=== PATIENT | female | born 1950 | race Caucasian/White ===

== ENCOUNTER → 2016-11-30 | Outpatient (CLI) | payer BC, MEDICARE ==
--- NOTE | 2016-11-30 14:50 | XR ---
EXAMINATION TYPE: XR chest 2V DATE OF EXAM: 11/30/2016 2:31 PM COMPARISON: 10/16/2015 HISTORY: Follow-up breast cancer FINDINGS: The lungs are clear and there is no pneumothorax, pleural effusion, or focal pneumonia. Mediport catheter noted with biapical pleural-based thickening greater on the right. Underlying COPD noted. No overt failure. Degenerative change of the spine. IMPRESSION: 1. No acute process.
== END | disposition home or self-care (01) ==
LOC: RADXRMAIN 14:16
PROVIDERS: ATTEND Internal Medicine Medical Oncology
DX: Z08 Encounter for follow-up examination after completed treatment for malignant neoplasm (principal); Z85.3 Personal history of malignant neoplasm of breast
CPT/HCPCS: 71020

== ENCOUNTER → 2017-05-25 | Outpatient (CLI) | payer MEDICARE ==
[2017-05-25 08:19] LABS: Basophils # (A) 0.1 k/uL (0-0.2); Basophils % (A) 1 %; CH 30.3; CHCM 33.1; Eosinophils # (A) 0.1 k/uL (0-0.7); Eosinophils % (A) 2 %; HCT 43.1 % (34.0-46.0); HDW 2.17; HGB 13.9 gm/dL (11.4-16.0); Luc # (Auto) 0.13; Luc % (Auto) 2; Lymphocytes # (A) 1.5 k/uL (1.0-4.8); Lymphocytes % (A) 26 %; MCH 29.7 pg (25.0-35.0); MCHC 32.3 g/dL (31.0-37.0); MCV 92.1 fL (80.0-100.0); Mean Platelet Volume 7.5; Monocytes # (A) 0.5 k/uL (0-1.0); Monocytes % (A) 8 %; Neutrophils # (A) 3.6 k/uL (1.3-7.7); Neutrophils % (A) 60 %; RBC 4.68 m/uL (3.80-5.40); WBC 5.9 k/uL (3.8-10.6); WBC (Perox) 5.33
[2017-05-25 08:20] LABS: ALT 39 U/L (9-52); AST 32 U/L (14-36); Anion Gap 8 mmol/L; Blood Urea Nitrogen 10 mg/dL (7-17); Calcium 9.6 mg/dL (8.4-10.2); Carbon Dioxide 30 mmol/L (22-30); Chloride 99 mmol/L (98-107); Cholesterol 185 mg/dL (<200); Glucose 93 mg/dL (74-99); HDL Cholesterol 79 mg/dL (40-60); Non-African American GFR(MDRD) >60 (>60 ml/min/1.73 sqM); Potassium 4.3 mmol/L (3.5-5.1); Sodium 137 mmol/L (137-145); Triglycerides 53 mg/dL (<150)
[2017-05-25 08:59] LABS: Hepatitis C Virus IgG Ab Negative (Negative); Hepatitis C Virus IgG Index 0.01
== END | disposition home or self-care (01) ==
LOC: LABWHC1 07:16
PROVIDERS: ATTEND Internal Medicine
DX: E78.5 Hyperlipidemia, unspecified (principal); M81.0 Age-related osteoporosis without current pathological fracture; E55.9 Vitamin D deficiency, unspecified; Z13.0 Encounter for screening for diseases of the blood and blood-forming organs and certain disorders involving the immune mechanism; Z13.228 Encounter for screening for other metabolic disorders; Z13.9 Encounter for screening, unspecified
CPT/HCPCS: 36415; 80048; 80061; 82306; 84450; 84460; 85025; 86803

== ENCOUNTER → 2017-09-21 | Outpatient (CLI) | payer MEDICARE ==
--- NOTE | 2017-09-21 15:11 | US ---
EXAMINATION TYPE: US kidneys/renal and bladder DATE OF EXAM: 09/21/2017 COMPARISON: US, CT CLINICAL HISTORY: D30.02 BENIGN BLAISE L KIDNEY. Patient stated has had left renal mass biopsied; normal renal function tests per patient EXAM MEASUREMENTS: Right Kidney: 10.9 x 5.9 x 4.8 cm Left Kidney: 10.2 x 5.4 x 6.4 cm Post Void Residual Volume: 3.1 mL Right Kidney: No hydronephrosis or masses seen Left Kidney: lower pole mass still imaged and size = 4.5 x 3.4 x 3.5cm with peripheral vascularity do cumented in mass. Bladder: wnl Bilateral Jets seen: Yes Normal Post Void Residual: Yes IMPRESSION: Stable solid mass lower pole left kidney.
== END | disposition home or self-care (01) ==
LOC: RADUSWWP 13:07
PROVIDERS: ATTEND Urology
DX: D30.02 Benign neoplasm of left kidney (principal)
CPT/HCPCS: 76770

== ENCOUNTER → 2018-01-07 | Outpatient (CLI) | payer MEDICARE ==
[2018-01-07 09:11] LABS: Cholesterol 178 mg/dL (<200); HDL Cholesterol 75 mg/dL (40-60); LDL Cholesterol,Calculated 91 mg/dL (0-99); Triglycerides 58 mg/dL (<150)
== END | disposition home or self-care (01) ==
LOC: LABWHC1 08:20
PROVIDERS: ATTEND Internal Medicine
DX: E78.5 Hyperlipidemia, unspecified (principal)
CPT/HCPCS: 36415; 80061

== ENCOUNTER → 2018-04-26 | Outpatient (CLI) | payer MEDICARE ==
--- NOTE | 2018-04-26 18:37 | US ---
EXAM MEASUREMENTS: Right Kidney: 10.3 x 3.6 x 5.2cm Left Kidney: 11.7 x 5.3 x 4.4cm PATIENT HISTORY: History of angiomyolipoma PRIOR EXAM: on PACS TECH IMPRESSIONS: 1. Right Kidney: no evidence of hydronephrosis or mass 2. Left Kidney: complex solid area lower pole = 5.7 x 4.2 x 4.2cm as seen on prior exam 3. Bladder: appears wnl Bilateral Jets seen: no NURSING SURGICAL SERVICES DIRECTOR: Normal Values: Renal Length = 9 - 12cm Bladder Wall: < 0.3cm IMPRESSION: Solid exophytic mass at the lower pole of the left kidney is unchanged in size allowing for measureme nt error compared to previous exam of 04/12/2016. This is consistent with benign angiomyolipoma. No evidence of renal obstruction.
== END | disposition home or self-care (01) ==
LOC: RADUSWWP 16:20
PROVIDERS: ATTEND Urology
DX: N28.89 Other specified disorders of kidney and ureter (principal); D30.02 Benign neoplasm of left kidney
CPT/HCPCS: 76770

== ENCOUNTER → 2018-05-25 | Outpatient (CLI) | payer MEDICARE ==
--- NOTE | 2018-05-25 12:01 | XR ---
EXAMINATION TYPE: XR chest 2V DATE OF EXAM: 05/25/2018 COMPARISON: 11/30/2016 TECHNIQUE: PA and lateral views submitted. HISTORY: Follow-up breast cancer FINDINGS: The lungs are clear and there is no pneumothorax, pleural effusion, or focal pneumonia. Hyperinflat ion suggests COPD. Biapical pleural thickening. Vague nodularity overlying the right midlung could be related to nipple shadow. Hypertrophic and degenerative change of the spine. IMPRESSION: 1. No acute process. Correlate for COPD. Vague nodularity right midlung may be related to nipple shad ow. Follow-up chest x-ray with nipple markers could be obtained.
== END | disposition home or self-care (01) ==
LOC: RADXRMAIN 10:39
PROVIDERS: ATTEND Internal Medicine Medical Oncology
DX: R91.8 Other nonspecific abnormal finding of lung field (principal); Z85.3 Personal history of malignant neoplasm of breast
CPT/HCPCS: 71046

== ENCOUNTER → 2018-06-09 | Outpatient (CLI) | payer MEDICARE ==
[2018-06-09 15:42] LABS: Blood Urea Nitrogen 13 mg/dL (7-17)
--- NOTE | 2018-06-09 21:57 | CT ---
EXAMINATION TYPE: CT chest w con DATE OF EXAM: 06/09/2018 COMPARISON: Prior CT chest abdomen and pelvis October 16, 2015. Prior chest x-ray May 25, 2018. HISTORY: Abnormal CXR at [facility]. History of breast cancer. CT DLP: 378 mGycm. Automated Exposure Control for Dose Reduction was Utilized. TECHNIQUE: CT scan of the thorax is performed following with IV Contrast, patient injected with 100 mL of Isovue 300. FINDINGS: LUNGS: There is background moderate biapical pleural/parenchymal scarring redemonstrated. Correlating with recent x-ray there is a new 6 x 4 mm nodule with irregular margins in the right lower lung late ral aspect axial image 43. There is medial left basilar linear atelectasis and/or scarring. No pleura l effusion or pneumothorax is present bilaterally. No additional nodules or masses are present. MEDIASTINUM: There are no greater than 1 cm hilar or mediastinal lymph nodes. No cardiomegaly or pe ricardial effusion is seen. There are prominent right and left pulmonary arteries likely reflective of underlying pulmonary hypertension. OTHER: Bilateral breasts are surgically absent. There is slight S-shaped scoliosis most prominent narinder r the thoracolumbar junction. There is moderate multilevel spurring in the thoracolumbar spine. IMPRESSION: There is confirmation of 6 x 4 mm nodule right mid to lower lung new from 2015 CT.
== END | disposition home or self-care (01) ==
LOC: RADCTMAIN 15:06
PROVIDERS: ATTEND Internal Medicine Medical Oncology
DX: C50.411 Malignant neoplasm of upper-outer quadrant of right female breast (principal); R91.1 Solitary pulmonary nodule; Z51.11 Encounter for antineoplastic chemotherapy
CPT/HCPCS: 82565; 84520; 71260; 36415; Q9967

== ENCOUNTER → 2018-06-25 | Outpatient (CLI) | payer MEDICARE ==
--- NOTE | 2018-06-27 21:55 | PE ---
EXAMINATION TYPE: PET CT fusion skull to thigh DATE OF EXAM: 06/25/2018 CLINICAL HISTORY: 67-year-old female restaging right breast cancer diagnosed in 2014. Status post tamia ateral mastectomies in 2014 and chemotherapy completed in 2016. New right lung solitary pulmonary nod ule. TECHNIQUE: Following the intravenous administration of 12.3 mCi of F-18 FDG, whole body images are performed from the skull base to the midthigh. Images are reviewed on the computer in the coronal, a xial, and sagittal planes. Reconstructed rotating images are created on independent workstation and reviewed on the computer. A localization and attenuation correction CT is performed in conjunction with the PET scan. Glucose level: 80 mg/dL Injection site: Left antecubital fossa. CTDI: 2.62 mGy DLP: 232.81 mGy-cm COMPARISON: CT chest 06/09/[address] abdomen 08/04/2016.. FINDINGS: PET: Symmetrical lingual tonsillar uptake likely physiologic. Otherwise, physiologic FDG uptake within the neck. 5 mm right lower lobe pulmonary nodule near the midlung level axial image 114 is too small for adequa te PET characterization. Physiologic FDG uptake within the chest. Average liver SUV 2.2. Solid mass redemonstrated in the lower pole left kidney measuring 4.3 cm, stable from 08/04/2016. The re is associated mild, borderline moderate uptake, max SUV 3.0. Tiny hyperdense cortical lesion measuring 5 mm lateral lower pole right kidney likely a small hemorrh agic cyst and shows no FDG uptake. Otherwise, physiologic FDG uptake within the abdomen and pelvis. ATTENUATION CORRECTION CT: Visualized paranasal sinuses and mastoid air cells are clear. No cervical lymphadenopathy. Bilateral mastectomies. Heart normal size without pericardial effusion. Aorta normal caliber with con ventional arch vessel branching anatomy. No thoracic lymphadenopathy by CT size criteria. Biapical pl eural parenchymal scarring and mild diffuse bronchial wall thickening No dilated small bowel, free fluid, or free air. Moderate stool burden. Paucity of intra-abdominal fa t and lack of IV contrast limits assessment of the abdomen and pelvis. Pelvic exam further limited due to extensive artifacts from the patient's hip replacements. Bones: Bilateral hip replacements. Degenerative changes lower lumbar spine. No osseous destructive pr ocess. Cervical spondylosis. Diffuse osteopenia. IMPRESSION: 1. Status post bilateral mastectomies. 2. The 5 mm right mid lung pulmonary nodule is too small for adequate PET characterization. 3-6 month follow-up CT recommended to reassess and exclude early metastatic disease. 3. Mild, borderline moderate uptake within the solid 4.3 cm left lower pole renal mass. This is stabl e dating back to at least 08/04/2016. 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 Annual surveillance can be performed.
== END | disposition home or self-care (01) ==
LOC: RADPETMAIN 09:51
PROVIDERS: ATTEND Internal Medicine Medical Oncology
DX: Z08 Encounter for follow-up examination after completed treatment for malignant neoplasm (principal); R91.1 Solitary pulmonary nodule; Z85.3 Personal history of malignant neoplasm of breast; Z90.13 Acquired absence of bilateral breasts and nipples
CPT/HCPCS: 78815; A9552

== ENCOUNTER → 2018-09-28 | Outpatient (CLI) | payer MEDICARE ==
[2018-09-28 08:52] LABS: ALT 36 U/L (9-52); AST 37 U/L (14-36); Albumin 4.3 g/dL (3.5-5.0); Alkaline Phosphatase 42 U/L (38-126); Anion Gap 7 mmol/L; Blood Urea Nitrogen 10 mg/dL (7-17); Calcium 9.8 mg/dL (8.4-10.2); Carbon Dioxide 31 mmol/L (22-30); Chloride 99 mmol/L (98-107); Cholesterol 195 mg/dL (<200); Glucose 86 mg/dL (74-99); HDL Cholesterol 78 mg/dL (40-60); LDL Cholesterol,Calculated 107 mg/dL (0-99); Potassium 4.4 mmol/L (3.5-5.1); Sodium 137 mmol/L (137-145); Total Bilirubin 0.6 mg/dL (0.2-1.3); Total Protein 7.3 g/dL (6.3-8.2); Triglycerides 52 mg/dL (<150)
[2018-09-28 09:00] LABS: HCT 43.8 % (34.0-46.0); HGB 14.6 gm/dL (11.4-16.0); MCH 30.4 pg (25.0-35.0); MCHC 33.3 g/dL (31.0-37.0); MCV 91.4 fL (80.0-100.0); Platelet Count 229 k/uL (150-450); RBC 4.79 m/uL (3.80-5.40); RDW 13.3 % (11.5-15.5); WBC 3.8 k/uL (3.8-10.6)
--- NOTE | 2018-09-28 10:26 | CT ---
EXAMINATION TYPE: CT chest w con DATE OF EXAM: 09/28/2018 COMPARISON: PET/CT 06/25/[address] chest 10/16/2015 HISTORY: 67-year-old female follow-up right breast cancer, occasional shortness of breath, embolism/t hrombosis TECHNIQUE: Contiguous axial scanning of the chest after the administration of 100 mL of Isovue 300. Coronal/sagittal reconstructions performed. CT DLP: 139mGycm. Automatic exposure control utilized for a dose reduction. FINDINGS: Heart normal size without pericardial. The aorta is normal caliber with conventional access right anatomy. No thoracic lymphadenopathy by CT size criteria. Mild centrilobular emphysema with biapical pleural-parenchymal scarring. Previously described 6 mm right lower lobe midlung pulmonary nodule is seen on axial image 47 and is now punctate 3 mm suggesting a benign etiology. No consolidation or pleural effusion. Known 4.3 cm lower pole left renal mass is not included on the current exam. Bones: Mild/moderate degenerative disc disease throughout. Cervical spondylosis. IMPRESSION: 1. COPD with mild emphysema. 2. Previous right lower lobe pulmonary nodule now punctate 3 mm (versus 6 mm, previously). This sugge sts a benign etiology. 3. Known 4.3 cm left renal mass not included on the current exam. Annual surveillance recommended. Po ssible lipid poor AML.
== END ==
LOC: RADCTMAIN 08:06
PROVIDERS: ATTEND Internal Medicine Medical Oncology
DX: C50.411 Malignant neoplasm of upper-outer quadrant of right female breast (principal); J43.9 Emphysema, unspecified; R91.8 Other nonspecific abnormal finding of lung field
CPT/HCPCS: 80061; 80053; 84443; 85027; 82306; 71260; 36415; Q9967

== ENCOUNTER → 2018-09-28 | Outpatient (CLI) | payer MEDICARE | END | disposition home or self-care (01) | LOC: LAB 08:12 | PROVIDERS: ATTEND Internal Medicine | DX: Z53.9 Procedure and treatment not carried out, unspecified reason (principal) ==

== ENCOUNTER → 2019-05-25 | Outpatient (CLI) | payer MEDICARE ==
--- NOTE | 2019-05-25 08:34 | US ---
EXAMINATION TYPE: US kidneys/renal and bladder DATE OF EXAM: 05/25/2019 COMPARISON: Exams dating back to 09/28/2013 CLINICAL HISTORY: D30.02 Benign neoplasm of left kidney. Benign left kidney mass EXAM MEASUREMENTS: Right Kidney: 10.2 x 3.8 x 6.3 cm Left Kidney: 10.7 x 5.9 x 4.6 cm Right Kidney: no evidence of hydronephrosis Left Kidney: complex solid mass lower pole = 5.5 x 4.4 x 3.5cm . On the most remote exam of 09/28/2013 this mass measured 4.7 x 3.3 cm. Urinary Bladder: appears wnl Bilateral Jets seen: yes There is no evidence for hydronephrosis at this point in time. No nephrolithiasis is seen. No gretta s are identified. The urinary bladder is anechoic. Bilateral ureteral jets are seen. IMPRESSION: Redemonstration of a complex left lower pole solid renal mass measuring to 5.5 cm. This demonstrates minimal interval growth in comparison to the remote imaging available of 09/28/2013 (4.7 cm at that ti me). As discussed on prior exams this may represent a lipid poor angiomyolipoma given relative stabil ity, however MRI abdomen could provide more definitive characterization. If truly an angiomyolipoma, the size predisposes the lesion to spontaneous internal hemorrhage and continued surveillance is emelia mmended.
== END | disposition home or self-care (01) ==
LOC: RADUSWWP 07:34
PROVIDERS: ATTEND Urology
DX: D30.02 Benign neoplasm of left kidney (principal)
CPT/HCPCS: 76770

== ENCOUNTER → 2019-08-10 | Outpatient (CLI) | payer MEDICARE ==
--- NOTE | 2019-08-10 11:38 | XR ---
EXAMINATION TYPE: XR chest 2V DATE OF EXAM: 08/10/2019 COMPARISON: 09/07/2018 TECHNIQUE: PA and lateral views submitted. HISTORY: Annual physical exam FINDINGS: The lungs are clear and there is no pneumothorax, pleural effusion, or focal pneumonia. Biapical pl eural thickening greater on the right nodule. Hyperinflation lungs. There are [address] nodules in the right upper lobe. No overt failure. No pleural effusion. Degenerative change of th e spine. Hyperinflation suggests COPD. IMPRESSION: 1. COPD. There are 2 nodules within the right upper lobe not seen with certainty on prior exam. Repea t CT scan of the chest is recommended
== END | disposition home or self-care (01) ==
LOC: RADXRMAIN 10:57
PROVIDERS: ATTEND Internal Medicine Medical Oncology
DX: J44.9 Chronic obstructive pulmonary disease, unspecified (principal); R91.8 Other nonspecific abnormal finding of lung field; C50.411 Malignant neoplasm of upper-outer quadrant of right female breast
CPT/HCPCS: 71046

== ENCOUNTER → 2019-08-24 | Outpatient (CLI) | payer MEDICARE ==
[2019-08-24 06:51] LABS: ALT 25 U/L (9-52); AST 32 U/L (14-36); African American GFR (CKD) >90 (>60 ml/min/1.73 sqM); Albumin 4.4 g/dL (3.5-5.0); Alkaline Phosphatase 58 U/L (38-126); Anion Gap 8 mmol/L; Blood Urea Nitrogen 12 mg/dL (7-17); Calcium 9.7 mg/dL (8.4-10.2); Carbon Dioxide 29 mmol/L (22-30); Chloride 101 mmol/L (98-107); Glucose 91 mg/dL (74-99); Non-African American GFR(CKD) 86 (>60 ml/min/1.73 sqM); Potassium 3.9 mmol/L (3.5-5.1); Sodium 138 mmol/L (137-145); Total Bilirubin 0.5 mg/dL (0.2-1.3); Total Protein 7.3 g/dL (6.3-8.2)
--- NOTE | 2019-08-24 09:21 | CT ---
EXAMINATION TYPE: CT chest w con DATE OF EXAM: 08/24/2019 COMPARISON: 518 HISTORY: Lung Nodules CT DLP: 136.2 mGycm Automated exposure control for dose reduction was used. CONTRAST: CT scan of the chest is performed with IV Contrast, patient injected with 100 mL of Isovue 300. FINDINGS: LUNGS: There is biapical parenchymal scarring noted. New Right upper lobe pulmonary nodule measuring 6.2 mm with surrounding micronodularity. Previously n oted tiny 3 mm pulmonary nodule right lower lobe is not identified at this time. No additional nodule s identified. No evidence for infiltrate, pleural effusion or mass. MEDIASTINUM: There are no greater than 1 cm hilar or mediastinal lymph nodes. No pericardial effusi on is seen. Thoracic aorta is of normal caliber. The heart is not enlarged. UPPER ABDOMEN: Left renal mass partially imaged has been described previously. Continued surveillance advised. OTHER: No additional significant abnormality is seen. IMPRESSION: 1.New Right upper lobe pulmonary nodule measuring 6.2 mm with surrounding micronodularity. Finding is nonspecific and follow-up study in 3 months is advised previously noted tiny 3 mm right lower lobe p ulmonary nodule is not redemonstrated at this time.
== END | disposition home or self-care (01) ==
LOC: RADCTMAIN 05:46
PROVIDERS: ATTEND Internal Medicine Medical Oncology
DX: Z51.11 Encounter for antineoplastic chemotherapy (principal); C50.411 Malignant neoplasm of upper-outer quadrant of right female breast; R91.1 Solitary pulmonary nodule
CPT/HCPCS: 80053; 71260; 36415; Q9967

== ENCOUNTER 2019-09-15 19:05 | Emergency (ER) | payer MEDICARE ==
[2019-09-15] MEDS ORDERED: SODIUM CHLORIDE 0.9% 1,000 ML IV STA (19:30)
--- NOTE | 2019-09-15 19:51 | ED ---
Neuro HPI - General Chief Complaint: Neuro Symptoms/Deficit Stated Complaint: Numbness L side, weakness Time Seen by Provider: 09/15/19 19:19 Source: patient, RN notes reviewed, old records reviewed Mode of arrival: ambulatory Limitations: no limitations - History of Present Illness Is the patient presenting with stroke symptoms?: Yes Last Known Well Date: 09/15/19 Last Known Well Time: 08:30 -: hour(s) (12) Initial Comments: This is a 68-year-old female the ER for evaluation patient resents today for evaluation regards to neurological symptoms left arm weakness which is had the past but worse today. She also complains of headache which is been new since today. She has history of left leg weakness in the past left arm weakness which she relates to cervical spinal issues. No facial involvement no slurred speech no chest pain no shortness of breath no weakness of lower legs she has history of high cholesterol no other significant arterial issues, no CAD no history of stroke Location: left arm History of same: Yes Place: home Severity: mild Quality: weak, tingling Improves With: none Worsens With: none On Anticoagulants: Yes Context: gradual onset Associated Symptoms: denies other symptoms Treatments Prior to Arrival: none - Related Data Home Medications: Home Medications Medication Instructions Recorded Confirmed ALPRAZolam [Xanax] 0.125 mg PO HS PRN 09/07/16 09/15/19 Aspirin EC [Ecotrin Low Dose] 81 mg PO DAILY 09/07/16 09/15/19 Simvastatin [Zocor] 10 mg PO HS 09/07/16 09/15/19 Albuterol Sulfate [Ventolin HFA] 2 puff INHALATION RT-QID PRN 09/15/19 09/15/19 Rizatriptan Odt [Maxalt [employer]] 10 mg PO DAILY PRN 09/15/19 09/15/19 Allergies/Adverse Reactions: Allergies Allergy/AdvReac Type Severity Reaction Status Date / Time diphenhydramine AdvReac NIGHTMARES Verified 09/15/19 21:15 [From Benadryl] Review of Systems ROS Statement: Those systems with pertinent positive or pertinent negative responses have been documented in the HPI. ROS Other: All systems not noted in ROS Statement are negative. General Exam Limitations: no limitations General appearance: alert, in no apparent distress Head exam: Present: atraumatic, normocephalic, normal inspection Eye exam: Present: normal appearance, PERRL, EOMI. Absent: scleral icterus, conjunctival injection, periorbital swelling ENT exam: Present: normal exam, mucous membranes moist Neck exam: Present: normal inspection. Absent: tenderness, meningismus, lymphadenopathy Respiratory exam: Present: normal lung sounds bilaterally. Absent: respiratory distress, wheezes, rales, rhonchi, stridor Cardiovascular Exam: Present: regular rate, normal rhythm, normal heart sounds. Absent: systolic murmur, diastolic murmur, rubs, gallop, clicks GI/Abdominal exam: Present: soft, normal bowel sounds. Absent: distended, tenderness, guarding, rebound, rigid Extremities exam: Present: normal inspection, full ROM, normal capillary refill. Absent: tenderness, pedal edema, joint swelling, calf tenderness Back exam: Present: normal inspection Neurological exam: Present: alert, oriented X3, CN II-XII intact Psychiatric exam: Present: normal affect, normal mood Skin exam: Present: warm, dry, intact, normal color. Absent: rash Stroke MDM - Lab Data Result diagrams: 09/15/19 19:45 09/15/19 19:45 Lab Results 09/15/19 09/15/19 09/15/19 Range/Units 19:45 19:45 19:45 WBC 6.2 (3.8-10.6) k/uL RBC 4.49 (3.80-5.40) m/uL Hgb 13.7 (11.4-16.0) gm/dL Hct 40.8 (34.0-46.0) % MCV 90.8 (80.0-100.0) fL MCH 30.4 (25.0-35.0) pg MCHC 33.5 (31.0-37.0) g/dL RDW 12.9 (11.5-15.5) % Plt Count 222 (150-450) k/uL Neutrophils % 67 % Lymphocytes % 22 % Monocytes % 6 % Eosinophils % 2 % Basophils % 1 % Neutrophils # 4.2 (1.3-7.7) k/uL Lymphocytes # 1.4 (1.0-4.8) k/uL Monocytes # 0.4 (0-1.0) k/uL Eosinophils # 0.1 (0-0.7) k/uL Basophils # 0.1 (0-0.2) k/uL PT 9.8 (9.0-12.0) sec INR 0.9 (<1.2) APTT 23.3 (22.0-30.0) sec Sodium 137 (137-145) mmol/L Potassium 4.1 (3.5-5.1) mmol/L Chloride 98 (98-107) mmol/L Carbon Dioxide 27 (22-30) mmol/L Anion Gap 12 mmol/L BUN 10 (7-17) mg/dL Creatinine 0.70 (0.52-1.04) mg/dL Est GFR (CKD-EPI)AfAm >90 (>60 ml/min/1.73 sqM) Est GFR (CKD-EPI)NonAf 90 (>60 ml/min/1.73 sqM) Glucose 101 H (74-99) mg/dL Calcium 10.2 (8.4-10.2) mg/dL Total Bilirubin 0.4 (0.2-1.3) mg/dL AST 35 (14-36) U/L ALT 35 (9-52) U/L Alkaline Phosphatase 62 (38-126) U/L Troponin I (0.000-0.034) ng/mL Total Protein 7.9 (6.3-8.2) g/dL Albumin 4.9 (3.5-5.0) g/dL 09/15/19 Range/Units 19:45 WBC (3.8-10.6) k/uL RBC (3.80-5.40) m/uL Hgb (11.4-16.0) gm/dL Hct (34.0-46.0) % MCV (80.0-100.0) fL MCH (25.0-35.0) pg MCHC (31.0-37.0) g/dL RDW (11.5-15.5) % Plt Count (150-450) k/uL Neutrophils % % Lymphocytes % % Monocytes % % Eosinophils % % Basophils % % Neutrophils # (1.3-7.7) k/uL Lymphocytes # (1.0-4.8) k/uL Monocytes # (0-1.0) k/uL Eosinophils # (0-0.7) k/uL Basophils # (0-0.2) k/uL PT (9.0-12.0) sec INR (<1.2) APTT (22.0-30.0) sec Sodium (137-145) mmol/L Potassium (3.5-5.1) mmol/L Chloride (98-107) mmol/L Carbon Dioxide (22-30) mmol/L Anion Gap mmol/L BUN (7-17) mg/dL Creatinine (0.52-1.04) mg/dL Est GFR (CKD-EPI)AfAm (>60 ml/min/1.73 sqM) Est GFR (CKD-EPI)NonAf (>60 ml/min/1.73 sqM) Glucose (74-99) mg/dL Calcium (8.4-10.2) mg/dL Total Bilirubin (0.2-1.3) mg/dL AST (14-36) U/L ALT (9-52) U/L Alkaline Phosphatase (38-126) U/L Troponin I <0.012 (0.000-0.034) ng/mL Total Protein (6.3-8.2) g/dL Albumin (3.5-5.0) g/dL - NIH Stroke Scale 1a. Level of Consciousness: (0) alert 1b. LOC Questions: (0) answers correctly 1c. LOC Commands: (0) performs tasks correctly 2. Best Gaze: (0) normal 3. Visual: (0) no visual loss 4. Facial Palsy: (0) normal symmetrical movement 5a. Motor Arm Left: (1) drift 5b. Motor Arm Right: (0) no drift 6a. Motor Leg Left: (0) no drift 6b. Motor Leg Right: (0) no drift 7. Limb Ataxia: (1) present 1 limb 8. Sensory: (0) normal 9. Best Language: (0) no aphasia 10. Dysarthria: (0) normal 11. Extinction/Inattention: (0) no abnormality - Thrombolytic Inclusion/Exclusion Thrombolytic Exclusion Criteria: Symptom Onset > 4.5 Hours - Medical Decision Making 68 female with no real significant heart disease or history of prior CVA coming in with nonspecific neurological complaint. At this point patient will be discharged home to follow-up as she does have history of cervical radiculopathy. CT brain is negative. Patient has no significant neurological findings and can be discharged home - Radiology Data Radiology results: report reviewed (CT brain CTA had not negative for acute disease chest x-rays negative), image reviewed - EKG Data -: EKG Interpreted by Me (EKG shows sinus rhythm rate of 81, KS 186, QRS 90, QTc 436) Past Medical History Past Medical History: Cancer, GERD/Reflux, Hyperlipidemia, Neurologic Disorder, Osteoarthritis (OA) Additional Past Medical History / Comment(s): MIGRAINES. SEASONAL ALLERGIES. HX BREAST CANCER. RECENT BOUT OF FLU-PT NOTIFIED DR. ANITHA BLANCO. BENIGN TUMOR ON LT KIDNEY History of Any Multi-Drug Resistant Organisms: None Reported Past Surgical History: Breast Surgery, Hernia Repair, Joint Replacement, Tonsillectomy, Tubal Ligation Additional Past Surgical History / Comment(s): BILAT MASTECTOMY-02/2015. PORT A CATH INSERTION 04/2015-UPPER LT CHEST. COLONOSCOPY X 2. RT MICHAEL. LT KIDNEY BX, 09-08-16 total lt hip Past Anesthesia/Blood Transfusion Reactions: Previous Problems w/ Anesthesia Additional Past Anesthesia/Blood Transfusion Reaction / Comment(s): B/P GOES VERY LOW AFTER SURGERIES Past Psychological History: Anxiety Smoking Status: Former smoker Past Alcohol Use History: Daily Past Drug Use History: None Reported - Past Family History Mother Family Medical History: Cancer, Deep Vein Thrombosis (DVT) Additional Family Medical History / Comment(s): OVARIAN Sister(s) Family Medical History: Cancer, Deep Vein Thrombosis (DVT) Additional Family Medical History / Comment(s): OVARIAN. 2 SISTERS HAD DVT Father Family Medical History: Cancer Additional Family Medical History / Comment(s): PROSTATE Brother(s) Family Medical History: Cancer Additional Family Medical History / Comment(s): LEUKEMIA Course Vital Signs 09/15/19 09/15/19 09/15/19 19:08 19:41 20:10 Temperature 97.3 F L Pulse Rate 87 93 Respiratory 20 16 Rate Blood Pressure 151/84 135/79 133/78 O2 Sat by Pulse 99 98 98 Oximetry 09/15/19 09/15/19 20:34 20:58 Temperature Pulse Rate 88 87 Respiratory 18 16 Rate Blood Pressure 133/78 134/72 O2 Sat by Pulse 99 100 Oximetry - Reevaluation(s) Reevaluation #1: 09/15/19 21:49 Record is reviewed Reevaluation #2: 09/15/19 21:49 Symptoms are feeling better feeling improved patient would like to be discharged Disposition Clinical Impression: Arm paresthesia, left Disposition: HOME SELF-CARE Condition: Good Instructions (If sedation given, give patient instructions): Paresthesia (ED) Is patient prescribed a controlled substance at d/c from ED?: No Referrals: Cecy Holland MD [Primary Care Provider] - 1-2 days
[2019-09-15 19:55] LABS: Basophils # (A) 0.1 k/uL (0-0.2); Basophils % (A) 1 %; Eosinophils # (A) 0.1 k/uL (0-0.7); Eosinophils % (A) 2 %; HCT 40.8 % (34.0-46.0); HGB 13.7 gm/dL (11.4-16.0); Lymphocytes # (A) 1.4 k/uL (1.0-4.8); Lymphocytes % (A) 22 %; MCH 30.4 pg (25.0-35.0); MCHC 33.5 g/dL (31.0-37.0); MCV 90.8 fL (80.0-100.0); Mean Platelet Volume 6.1; Monocytes # (A) 0.4 k/uL (0-1.0); Monocytes % (A) 6 %; Neutrophils # (A) 4.2 k/uL (1.3-7.7); Neutrophils % (A) 67 %; Platelet Count 222 k/uL (150-450); RBC 4.49 m/uL (3.80-5.40); RDW 12.9 % (11.5-15.5); WBC 6.2 k/uL (3.8-10.6)
[2019-09-15 20:04] LABS: ALT 35 U/L (9-52); AST 35 U/L (14-36); African American GFR (CKD) >90 (>60 ml/min/1.73 sqM); Albumin 4.9 g/dL (3.5-5.0); Alkaline Phosphatase 62 U/L (38-126); Anion Gap 12 mmol/L; Blood Urea Nitrogen 10 mg/dL (7-17); Calcium 10.2 mg/dL (8.4-10.2); Carbon Dioxide 27 mmol/L (22-30); Chloride 98 mmol/L (98-107); Glucose 101 mg/dL (74-99); Non-African American GFR(CKD) 90 (>60 ml/min/1.73 sqM); Potassium 4.1 mmol/L (3.5-5.1); Sodium 137 mmol/L (137-145); Total Bilirubin 0.4 mg/dL (0.2-1.3); Total Protein 7.9 g/dL (6.3-8.2)
--- NOTE | 2019-09-15 20:11 | CT ---
EXAMINATION: CT brain wo con for TPA DATE AND TIME: 09/15/2019 7:56 PM CLINICAL INDICATION: PHH; Neuro deficit, acute, stroke suspected TECHNIQUE: Standard departmental protocol.; 1077.8; COMPARISON: None. FINDINGS: The calvarium is intact. There is no intracranial hemorrhage. There is no intracranial mass or mass effect. No definite new intra-axial or extra-axial attenuation defect. The paranasal sinuses, middle ear cavities, and mastoid sinus air cells are clear. The orbits are unremarkable. IMPRESSION: NO ACUTE PROCESS.
[2019-09-15 20:24] LABS: INR 0.9 (<1.2); Partial Thromboplastin Time 23.3 sec (22.0-30.0); Prothrombin Time 9.8 sec (9.0-12.0)
[2019-09-15 21:00] VITALS: RESP 16
--- NOTE | 2019-09-15 21:14 | CT ---
EXAMINATION TYPE: CT angio head neck contrast and with 3-D reconstruction renderings DATE OF EXAM: 09/15/2019 HISTORY: LT side numbness, weakness. COMPARISON: noncontrast CT Head 09/15/2019 CT DLP: 354.9 mGycm. Automated Exposure Control for Dose Reduction was Utilized. TECHNIQUE: Departmental CTA scan of the neck performed with IV Contrast, patient injected with 65 mL of Isovue 370, axial images are obtained, coronal and sagittal reformatted images are reviewed. Three -D reconstructed images are created on an independent workstation and reviewed. FINDINGS: The bilateral carotid arterial systems are widely patent without significant stenoses or di ssection. Similarly, the bilateral vertebral arterial systems are widely patent without significant s tenosis or dissection. The intracranial anterior and posterior circulation is widely patent without s ignificant stenosis or dissection or aneurysm. There are no incidental intracranial, intraspinal, neck, upper chest or skeletal findings. IMPRESSION: No significant abnormality is seen.
--- NOTE | 2019-09-15 21:30 | XR ---
EXAMINATION: XR chest 2V DATE AND TIME: 09/15/2019 8:22 PM CLINICAL INDICATION: PHH; altered mental status TECHNIQUE: Departmental protocol COMPARISON: 08/10/2019 chest radiographs FINDINGS: The lungs are well expanded and negative for pulmonary edema, atelectasis, or pneumonia. The previous ly seen subcentimeter right upper lobe and right lower lobe pulmonary nodules are redemonstrated. The pleural spaces are negative. The cardiac silhouette is not enlarged; remainder of the mediastinal silhouette is unremarkable. The skeletal structures and soft tissues are negative for acute findings. IMPRESSION: NO ACUTE PROCESS. *Subcentimeter pulmonary nodules redemonstrated; for which November 2019 CT chest follow-up charact erization is recommended.
[2019-09-15 22:09] VITALS: BP 126/70; PULSE 88; TEMP 98.2
== END 2019-09-15 22:00 | disposition home or self-care (01) ==
LOC: EC 19:05
DX: R20.2 Paresthesia of skin (principal); R53.1 Weakness; R51 Headache; E78.5 Hyperlipidemia, unspecified; F41.9 Anxiety disorder, unspecified; Z79.82 Long term (current) use of aspirin; Z79.899 Other long term (current) drug therapy; Z88.8 Allergy status to other drugs, medicaments and biological substances; Z87.891 Personal history of nicotine dependence; Z85.3 Personal history of malignant neoplasm of breast; Z90.13 Acquired absence of bilateral breasts and nipples
CPT/HCPCS: 36415; 93005; 80053; 84484; 85025; 85610; 85730; 71046; 70496; 70450; 70498; 99285; 96360; Q9967

== ENCOUNTER → 2020-06-10 | Outpatient (CLI) | payer MEDICARE ==
[2020-06-10 15:51] LABS: Chol/HDL Ratio 2.56
== END | disposition home or self-care (01) ==
LOC: LABWHC1 07:53
PROVIDERS: ATTEND Internal Medicine
DX: E78.5 Hyperlipidemia, unspecified (principal); M81.0 Age-related osteoporosis without current pathological fracture; I47.1 Supraventricular tachycardia
CPT/HCPCS: 36415; 80061; 82306; 84443

== ENCOUNTER → 2020-06-14 | Outpatient (CLI) | payer MEDICARE ==
--- NOTE | 2020-06-14 13:49 | BD ---
EXAMINATION TYPE: Axial Bone Density DATE OF EXAM: 06/14/2020 COMPARISON: NONE CLINICAL HISTORY: Postmenopausal female Height: 68 Weight: 124.4 FRAX RISK QUESTIONS: Alcohol (3 or more units per day): no Family History (Parent hip fracture): no Glucocorticoids (More than 3mos): no (Ex: prednisone, prednisolone, methylprednisolone, dexamethasone, and hydrocortisone). History of Fracture in Adulthood: no Secondary Osteoporosis: 1. Type 1 Diabetes: no 2. Hyperthyroidism: no 3. Menopause before 45: no 4. Malnutrition: no 5. Chronic liver disease: no Rheumatoid Arthritis: no Current Tobacco Use: no RISK FACTORS HISTORY OF: Surgery to Spine/Hip(right/left)/Wrist (right/left): bilateral hip replacements When: 2009 and 2005 Family History of Osteoporosis: yes Active: yes Diet low in dairy products/other sources of calcium: yes Postmenopausal woman: age 51 How long: Lost more than 2 inches in height since high school: yes MEDICATIONS: vitamins, xanax, allergy meds, cholesterol meds Additional History: EXAM MEASUREMENTS: Bone mineral densitometry was performed using the [employer] System. Bone mineral density as measured about the Lumbar spine is: ----- L1-L4(G/cm2): 1.095 T Score Values are as follows: ----- L2: -0.1 ----- L3: -1.1 ----- L4: -1.7 ----- L1-L4: -0.7 Bone mineral density has: increased 7.3 % since study of: 6. Bone mineral density about the L Wrist (g/cm2): 0.465 T Score values are as follows: -----Dist. R+U: -3.0 -----Prox. R+U: -3.2 -----Radius total: -3.5 Bone mineral density : baseline IMPRESSION: Osteoporosis (T Score less than -2.5). There is increased fracture risk and therapy is usually indicated based on age. Re-Screen 1-2 years. NOTE: T-SCORE=SD OF THE YOUNG ADULT MEAN.
== END | disposition home or self-care (01) ==
LOC: RADBDWWP 09:47
PROVIDERS: ATTEND Internal Medicine
DX: M81.0 Age-related osteoporosis without current pathological fracture (principal)
CPT/HCPCS: 77080

== ENCOUNTER → 2020-07-29 | Outpatient (CLI) | payer MEDICARE ==
[2020-07-29 21:03] LABS: African American GFR (CKD) 108.5 (60.0-200.0); Anion Gap 7.5 mmol/L (4.00-12.00); Calcium 9.3 mg/dL (8.7-10.3); Carbon Dioxide 27.5 mmol/L (21.6-31.8); Non-African American GFR(CKD) 93.7 (60.0-200.0); Potassium 4.5 mmol/L (3.5-5.5)
== END | disposition home or self-care (01) ==
LOC: LABWHC1 09:51
PROVIDERS: ATTEND Internal Medicine
DX: Z51.81 Encounter for therapeutic drug level monitoring (principal)
CPT/HCPCS: 36415; 80048

== ENCOUNTER → 2020-08-19 | Outpatient (CLI) | payer MEDICARE ==
--- NOTE | 2020-08-19 17:11 | CT ---
EXAMINATION TYPE: CT chest w con DATE OF EXAM: 08/19/2020 COMPARISON: CT chest 08/24/2019, 09/28/2018. HISTORY: follow up lung nodules CT DLP: 138.8 mGycm Automated exposure control for dose reduction was used. CONTRAST: CT scan of the chest is performed with IV Contrast, patient injected with 100 mL of Isovue 300. FINDINGS: LUNGS: There is redemonstrated nodularity of the right middle lobe which demonstrates somewhat perily mphatic distribution and distribution along the fissure (4:29-31) which appears similar to 08/24/2019 CT comparison. There is also redemonstrated nodularity within the left upper lobe (4:32), which is i n similar distribution as the right upper lobe nodularity, and not significantly changed from 09/28/20 18 and 08/24/2019 CT comparisons. Biapical pleural thickening. There is also redemonstrated right lat eral pleural thickening versus scarring (4:24) which is unchanged. No pleural effusion. No pneumothor ax. The tracheobronchial tree is patent. MEDIASTINUM/SOFT TISSUES: Status post bilateral mastectomies. No axillary, hilar, or mediastinal lymp hadenopathy greater than 1 cm. Cardiac size is normal. No pericardial effusion. No thoracic aortic an eurysm. UPPER ABDOMEN: No adrenal nodule. OSSEOUS: No acute osseous abnormality. Degenerative changes of the spine. Multilevel hemangiomas rede monstrated. IMPRESSION: Nodularity of the right middle lobe and left upper lobe with somewhat perilymphatic distribution, unc hanged versus 08/24/2019 comparison. Findings are nonspecific and wide differential includes sarcoido sis and inflammatory pneumonitis. Infectious etiology and lymphangitic carcinomatosis is considered l ess likely due to lack of significant interval change. Recommend annual follow-up CT chest for stabil ity.
== END | disposition home or self-care (01) ==
LOC: RADCTMAIN 08:43
PROVIDERS: ATTEND Internal Medicine Medical Oncology
DX: R91.8 Other nonspecific abnormal finding of lung field (principal); C50.411 Malignant neoplasm of upper-outer quadrant of right female breast
CPT/HCPCS: 71260; Q9967

== ENCOUNTER 2021-03-25 21:15 | Emergency (ER) | payer MEDICARE ==
[2021-03-25 21:31] VITALS: BP 124/76; PULSE 76; RESP 16; TEMP 97.3
[2021-03-25] MEDS ORDERED: POLYMYXIN B-TRIMETHOPRIM SULF (10,000-1) OPHTH DROPS 10 ML BTL RIGHT EYE STA (22:28)
[2021-03-25] MEDS ORDERED: DEXAMETHASONE SOD PHOSPHATE 10 MG/ML 1 ML VIAL IM STA (22:28)
[2021-03-25] MEDS ORDERED: IBUPROFEN 600 MG TAB PO STA (22:28)
[2021-03-25] MEDS ORDERED: hydrOXYzine HCL 25 MG TAB PO STA (22:29)
[2021-03-25] MEDS ORDERED: FAMOTIDINE 20 MG TAB PO STA (22:29)
--- NOTE | 2021-03-25 22:35 | ED ---
Eye Problem HPI - General Chief complaint: Eye Problems Stated complaint: Swollen eye Time Seen by Provider: 03/25/21 22:04 Source: patient Mode of arrival: ambulatory Limitations: no limitations - Related Data Home Medications Medication Instructions Recorded Confirmed ALPRAZolam [Xanax] 0.125 mg PO HS PRN 09/07/16 09/15/19 Aspirin EC [Ecotrin Low Dose] 81 mg PO DAILY 09/07/16 09/15/19 Simvastatin [Zocor] 10 mg PO HS 09/07/16 09/15/19 Albuterol Sulfate [Ventolin HFA] 2 puff INHALATION RT-QID PRN 09/15/19 09/15/19 Rizatriptan Odt [Maxalt Philanthropy Officer] 10 mg PO DAILY PRN 09/15/19 09/15/19 Allergies Allergy/AdvReac Type Severity Reaction Status Date / Time diphenhydramine AdvReac NIGHTMARES Verified 03/25/21 21:29 [From Benadryl] Review of Systems ROS Statement: Those systems with pertinent positive or pertinent negative responses have been documented in the HPI. ROS Other: All systems not noted in ROS Statement are negative. Past Medical History Past Medical History: Cancer, GERD/Reflux, Hyperlipidemia, Neurologic Disorder, Osteoarthritis (OA) Additional Past Medical History / Comment(s): MIGRAINES. SEASONAL ALLERGIES. HX BREAST CANCER. RECENT BOUT OF FLU-PT NOTIFIED DR. ANITHA BLANCO. BENIGN TUMOR ON LT KIDNEY History of Any Multi-Drug Resistant Organisms: None Reported Past Surgical History: Breast Surgery, Hernia Repair, Joint Replacement, Tonsillectomy, Tubal Ligation Additional Past Surgical History / Comment(s): BILAT MASTECTOMY-02/2015. PORT A CATH INSERTION 04/2015-UPPER LT CHEST. COLONOSCOPY X 2. RT MICHAEL. LT KIDNEY BX, 09-08-16 total lt hip Past Anesthesia/Blood Transfusion Reactions: Previous Problems w/ Anesthesia Additional Past Anesthesia/Blood Transfusion Reaction / Comment(s): B/P GOES VERY LOW AFTER SURGERIES Past Psychological History: Anxiety Smoking Status: Never smoker Past Alcohol Use History: Daily Past Drug Use History: None Reported - Past Family History Mother Family Medical History: Cancer, Deep Vein Thrombosis (DVT) Additional Family Medical History / Comment(s): OVARIAN Sister(s) Family Medical History: Cancer, Deep Vein Thrombosis (DVT) Additional Family Medical History / Comment(s): OVARIAN. 2 SISTERS HAD DVT Father Family Medical History: Cancer Additional Family Medical History / Comment(s): PROSTATE Brother(s) Family Medical History: Cancer Additional Family Medical History / Comment(s): LEUKEMIA General Exam Limitations: no limitations Course Vital Signs 03/25/21 21:28 Temperature 97.3 F L Pulse Rate 76 Respiratory 16 Rate Blood Pressure 124/76 O2 Sat by Pulse 100 Oximetry Disposition Clinical Impression: Chemosis of right conjunctiva, Bacterial conjunctivitis, Allergic conjunctivitis Disposition: ADMITTED IP TO THIS HOSP Condition: Fair Instructions (If sedation given, give patient instructions): Conjunctivitis (ED), Orbital Cellulitis (ED) Is patient prescribed a controlled substance at d/c from ED?: No Referrals: Cecy Holland MD [Primary Care Provider] - 1-2 days
== END 2021-03-25 23:09 | disposition other institution (70) ==
LOC: EC 21:15
DX: H11.421 Conjunctival edema, right eye (principal); H10.11 Acute atopic conjunctivitis, right eye; H10.89 Other conjunctivitis; F41.9 Anxiety disorder, unspecified; K21.9 Gastro-esophageal reflux disease without esophagitis; E78.5 Hyperlipidemia, unspecified; M19.90 Unspecified osteoarthritis, unspecified site; Z79.82 Long term (current) use of aspirin
CPT/HCPCS: 99284

== ENCOUNTER → 2021-03-26 | Outpatient (CLI) | payer MEDICARE ==
[2021-03-26 16:31] LABS: Basophils % (A) 0 %; Eosinophils % (A) 1 %; HCT 39.5 % (34.0-46.0); HGB 12.9 gm/dL (11.4-16.0); Lymphocytes # (A) 0.8 k/uL (1.0-4.8); Lymphocytes % (A) 12 %; MCHC 32.7 g/dL (31.0-37.0); MCV 91.6 fL (80.0-100.0); Mean Platelet Volume 7.5; Monocytes # (A) 0.6 k/uL (0-1.0); Monocytes % (A) 9 %; Neutrophils # (A) 5.4 k/uL (1.3-7.7); Neutrophils % (A) 77 %; Platelet Count 210 k/uL (150-450); RBC 4.32 m/uL (3.80-5.40); RDW 13.3 % (11.5-15.5)
[2021-03-26 16:44] LABS: African American GFR (CKD) >90 (>60 ml/min/1.73 sqM); Blood Urea Nitrogen 12 mg/dL (7-17); Non-African American GFR(CKD) >90 (>60 ml/min/1.73 sqM)
[2021-03-26 17:22] LABS: Erythrocyte Sedimentation Rate 14 mm/hr (0-20)
--- NOTE | 2021-03-27 04:36 | MR ---
EXAMINATION TYPE: MR orbits wo/w con DATE OF EXAM: 03/26/2021 COMPARISON: None HISTORY: Swelling of the right eye. CONTRAST: Standard multiplanar, multisequence MRI departmental protocol utilizing 6 mL intravenous Gadavist romulo olinium contrast. There is some preseptal soft tissue swelling anterior to the right globe. There is no evidence of ret ro-orbital mass. The lateral rectus muscle on the right side is slightly larger than the left. The ex traocular muscles are otherwise fairly symmetric.. Optic nerves appear symmetric. There is no evidenc e of sellar mass. Pituitary stalk is in the midline. Optic chiasm appears normal. There is a mild rig ht-sided exophthalmus. No right-sided retro-orbital mass seen. There is minimal asymmetric increased orbital fat on the right side compared to the left. The contrast images show no pathologic enhancemen t. Signal pattern of the brain is fairly normal. There is minimal cerebral atrophy. IMPRESSION: Mild right side exophthalmus with preseptal soft tissue swelling as well. Soft tissue swelling also i nvolves the anterior right zygoma. No retro-orbital mass. Slight asymmetric increased fat and lateral rectus muscle compared to the left.
== END | disposition home or self-care (01) ==
LOC: RADMRIMAIN 15:49
PROVIDERS: ATTEND Ophthalmology
DX: H05.20 Unspecified exophthalmos (principal)
CPT/HCPCS: 85652; 82565; 84520; 85025; 86140; 70543; 36415; A9585

== ENCOUNTER → 2021-05-21 | Outpatient (CLI) | payer MEDICARE | END | disposition home or self-care (01) | LOC: LABWHC1 11:39 | PROVIDERS: ATTEND Internal Medicine | DX: D86.9 Sarcoidosis, unspecified (principal) | CPT/HCPCS: 36415; 82164; 86038; 86431 ==

== ENCOUNTER 2021-06-20 08:27 | Emergency (ER) | payer MEDICARE ==
--- NOTE | 2021-06-20 08:50 | ED ---
General Adult HPI - General Stated complaint: Covid, needs antibodies Time Seen by Provider: 06/20/21 08:33 Source: patient, RN notes reviewed Mode of arrival: ambulatory Limitations: no limitations - History of Present Illness Initial comments: This is a 70-year-old female presents emergency department with chief complaint of COVID-19, requesting multiple antibodies. Patient states that she started having symptoms 2 days ago tested positive yesterday for COVID-19. Patient was recommended by her PCP to come in for monoclonal antibodies. Patient states she has a slight cough, body aches no reported fevers chills or sweats. Patient states she has no difficulty breathing she does have a history of COPD. Patient denies any GI symptoms including nausea and diarrhea constipation she denies any known real sick contact. Patient offers no other complaints. - Related Data Home Medications Medication Instructions Recorded Confirmed ALPRAZolam [Xanax] 0.125 mg PO HS PRN 09/07/16 09/15/19 Aspirin EC [Ecotrin Low Dose] 81 mg PO DAILY 09/07/16 09/15/19 Simvastatin [Zocor] 10 mg PO HS 09/07/16 09/15/19 Albuterol Sulfate [Ventolin HFA] 2 puff INHALATION RT-QID PRN 09/15/19 09/15/19 Rizatriptan Odt [Maxalt [employer] Coordinator] 10 mg PO DAILY PRN 09/15/19 09/15/19 Allergies Allergy/AdvReac Type Severity Reaction Status Date / Time diphenhydramine AdvReac NIGHTMARES Verified 06/20/21 08:33 [From Sweetie] Review of Systems ROS Statement: Those systems with pertinent positive or pertinent negative responses have been documented in the HPI. ROS Other: All systems not noted in ROS Statement are negative. Past Medical History Past Medical History: Cancer, GERD/Reflux, Hyperlipidemia, Neurologic Disorder, Osteoarthritis (OA) Additional Past Medical History / Comment(s): MIGRAINES. SEASONAL ALLERGIES. HX BREAST CANCER. RECENT BOUT OF FLU-PT NOTIFIED DR. ANITHA BLANCO. BENIGN TUMOR ON LT KIDNEY History of Any Multi-Drug Resistant Organisms: None Reported Past Surgical History: Breast Surgery, Hernia Repair, Joint Replacement, Tonsillectomy, Tubal Ligation Additional Past Surgical History / Comment(s): BILAT MASTECTOMY-02/2015. PORT A CATH INSERTION 04/2015-UPPER LT CHEST. COLONOSCOPY X 2. RT MICHAEL. LT KIDNEY BX, 09-08-16 total lt hip Past Anesthesia/Blood Transfusion Reactions: Previous Problems w/ Anesthesia Additional Past Anesthesia/Blood Transfusion Reaction / Comment(s): B/P GOES VERY LOW AFTER SURGERIES Past Psychological History: Anxiety Smoking Status: Never smoker Past Alcohol Use History: Daily Past Drug Use History: None Reported - Past Family History Mother Family Medical History: Cancer, Deep Vein Thrombosis (DVT) Additional Family Medical History / Comment(s): OVARIAN Sister(s) Family Medical History: Cancer, Deep Vein Thrombosis (DVT) Additional Family Medical History / Comment(s): OVARIAN. 2 SISTERS HAD DVT Father Family Medical History: Cancer Additional Family Medical History / Comment(s): PROSTATE Brother(s) Family Medical History: Cancer Additional Family Medical History / Comment(s): LEUKEMIA General Exam Limitations: no limitations General appearance: alert, in no apparent distress, other (Vitals reviewed within normal limits.) Head exam: Present: atraumatic, normocephalic, normal inspection Eye exam: Present: normal appearance, PERRL, EOMI. Absent: scleral icterus, conjunctival injection, periorbital swelling ENT exam: Present: normal exam, mucous membranes moist Neck exam: Present: normal inspection. Absent: tenderness, meningismus, lymphadenopathy Respiratory exam: Present: normal lung sounds bilaterally. Absent: respiratory distress, wheezes, rales, rhonchi, stridor Cardiovascular Exam: Present: regular rate, normal rhythm, normal heart sounds. Absent: systolic murmur, diastolic murmur, rubs, gallop, clicks Neurological exam: Present: alert Skin exam: Present: warm, dry, intact, normal color. Absent: rash Course Vital Signs 06/20/21 08:29 Temperature 99 F Pulse Rate 92 Respiratory 18 Rate Blood Pressure 118/73 O2 Sat by Pulse 97 Oximetry Medical Decision Making - Medical Decision Making Patient is positive for COVID-19. Vitals are within normal she has no respiratory distress. Patient has no hypoxia. Patient was given monoclonal antibodies will be discharged in stable condition return parameters discussed. Disposition Clinical Impression: COVID-19 Disposition: HOME SELF-CARE Condition: Stable Instructions (If sedation given, give patient instructions): Coronavirus Disease 2019 (COVID-19) Additional Instructions: Please return to the Emergency Department if symptoms worsen or any other concerns. Is patient prescribed a controlled substance at d/c from ED?: No Referrals: Cecy Holland MD [Primary Care Provider] - 1-2 days Time of Disposition: 08:50
[2021-06-20] MEDS ORDERED: SODIUM CHLORIDE 0.9% 50 ML IVPB ONE (09:00)
[2021-06-20] MEDS ORDERED: CASIRIVIMAB (REGN10933) (EUA) 600 MG, IMDEVIMAB (REGN10987) (EUA) 600 MG in SODIUM CHLO... IVPB ONE (09:30)
[2021-06-20 09:55] VITALS: RESP 16
[2021-06-20 11:00] VITALS: BP 103/85; PULSE 70; TEMP 98
== END 2021-06-20 11:00 | disposition home or self-care (01) ==
LOC: EC 08:27
DX: U07.1 COVID-19 (principal); E78.5 Hyperlipidemia, unspecified; K21.9 Gastro-esophageal reflux disease without esophagitis; M19.90 Unspecified osteoarthritis, unspecified site; F41.9 Anxiety disorder, unspecified; Z79.82 Long term (current) use of aspirin; Z79.899 Other long term (current) drug therapy; Z86.018 Personal history of other benign neoplasm; Z85.3 Personal history of malignant neoplasm of breast; Z88.8 Allergy status to other drugs, medicaments and biological substances
CPT/HCPCS: 99283; 96374; Q0243

== ENCOUNTER → 2021-09-16 | Outpatient (CLI) | payer MEDICARE ==
[2021-09-16 07:57] LABS: African American GFR (CKD) >90 (>60 ml/min/1.73 sqM); Blood Urea Nitrogen 14 mg/dL (7-17); Non-African American GFR(CKD) 79 (>60 ml/min/1.73 sqM)
--- NOTE | 2021-09-16 08:43 | CT ---
EXAMINATION TYPE: CT chest w con DATE OF EXAM: 09/16/2021 COMPARISON: Chest CT August 19, 2020 and older CTs back to 2014 HISTORY: Lung nodule, prior abnormal CT. CT DLP: 115.2 mGycm. Automated Exposure Control for Dose Reduction was Utilized. TECHNIQUE: CT scan of the thorax is performed following with IV Contrast, patient injected with 100 mL of Isovue 300. FINDINGS: LUNGS: There is background moderate biapical pleural/parenchymal scarring redemonstrated. Persistent focal linear and slightly nodular scarring in the right midlung laterally axial images 26 through 28 without increasing nodularity seen from most recent CT. There is additional [id number] focal li near and slightly nodular scarring anteriorly left mid lung axial images 29 through 34 not significan tly changed from most recent CT. No new greater than 5 mm noncalcified pulmonary nodules. No pleural effusion or pneumothorax is identified bilaterally. MEDIASTINUM: There is stable prominent borderline enlarged AP window lymph node axial image [address] No new greater than 1 cm thoracic lymph nodes. No cardiomegaly or pericardial effusion is s een. There are prominent right and left pulmonary arteries likely reflective of underlying pulmonary hypertension. OTHER: Bilateral breasts are surgically absent. There is slight S-shaped scoliosis redemonstrated. Mi ld multilevel spurring in the thoracolumbar spine. IMPRESSION: No significant change from most recent CT. No new or enlarging greater than 5 mm pulmonar y nodules.
== END | disposition home or self-care (01) ==
LOC: RADCTMAIN 06:54
PROVIDERS: ATTEND Internal Medicine Medical Oncology
DX: R91.8 Other nonspecific abnormal finding of lung field (principal)
CPT/HCPCS: 84443; 82565; 84520; 71260; 36415; Q9967

== ENCOUNTER → 2021-09-22 | Outpatient (CLI) | payer MEDICARE ==
--- NOTE | 2021-09-22 15:46 | US ---
EXAMINATION TYPE: US kidneys/renal and bladder DATE OF EXAM: 09/22/2021 COMPARISON: May 25, 2019 CLINICAL HISTORY: D41.2 Scott uncertain behviour L kidney. follow up left kidney benign mass. EXAM MEASUREMENTS: Right Kidney: 10.1 x 4.1 x 3.8 cm Left Kidney: 11.0 x 4.5 x 5.6 cm Limited exam due to patient small body habitus and overlying bowel gas Right Kidney: Inferior pole obscured by bowel gas Left Kidney: Limited visualization. Scanned through patients back. previous renal mass seen - 4.2 x 4.3 x 4.0 cm Bladder: distended, anechoic Bilateral Jets seen There is no evidence for hydronephrosis at this point in time. No nephrolithiasis is seen. No gretta s are identified. The urinary bladder is anechoic. Bilateral ureteral jets are seen. IMPRESSION: Redemonstration of lower pole renal mass on the left. Malignancy not excluded. CT correlation advised .
== END | disposition home or self-care (01) ==
LOC: RADUSWWP 14:49
PROVIDERS: ATTEND Urology
DX: D41.02 Neoplasm of uncertain behavior of left kidney (principal)
CPT/HCPCS: 76770

== ENCOUNTER → 2021-10-09 | Outpatient (CLI) | payer MEDICARE ==
[2021-10-09 14:13] LABS: Basophils # (A) 0.06 X 10*3/uL (0.00-0.10); Basophils % (A) 1.2 %; Eosinophils # (A) 0.23 X 10*3/uL (0.04-0.35); Eosinophils % (A) 4.6 %; HCT 39.8 % (37.2-46.3); HGB 12.6 g/dL (12.0-15.0); Lymphocytes # (A) 1.58 X 10*3/uL (0.90-5.00); Lymphocytes % (A) 31.8 %; MCH 29.3 pg (27.0-32.0); MCHC 31.7 g/dL (32.0-37.0); MCV 92.6 fL (80.0-97.0); Mean Platelet Volume 11.1 fL (9.5-12.2); Monocytes # (A) 0.68 X 10*3/uL (0.20-1.00); Monocytes % (A) 13.7 %; Neutrophils # (A) 2.41 X 10*3/uL (1.80-7.70); Neutrophils % (A) 48.5 %; Platelet Count 217 X 10*3/uL (140-440); RDW 14.3 % (11.5-14.5); WBC 4.97 X 10*3/uL (4.50-10.00)
[2021-10-09 16:03] LABS: ALT 20 U/L (8-44); AST 29 U/L (13-35); African American GFR (CKD) 102.9 (60.0-200.0); Albumin 4.4 g/dL (3.8-4.9); Albumin/Globulin Ratio 2.19 (1.60-3.17); Alkaline Phosphatase 59 U/L (41-126); Blood Urea Nitrogen 8.7 mg/dL (9.0-27.0); Calcium 9.5 mg/dL (8.7-10.3); Carbon Dioxide 27.1 mmol/L (20.0-27.5); Chloride 100 mmol/L (96-109); Chol/HDL Ratio 2.42 Ratio; Glucose 81 mg/dL (70-110); LDL Cholesterol,Calculated 96.9 mg/dL (0.0-131.0); Non-African American GFR(CKD) 88.8 (60.0-200.0); Potassium 4.3 mmol/L (3.5-5.5); Sodium 138 mmol/L (135-145); Total Protein 6.5 g/dL (6.2-8.2)
== END | disposition home or self-care (01) ==
LOC: LABWHC1 08:03
PROVIDERS: ATTEND Internal Medicine
DX: E78.5 Hyperlipidemia, unspecified (principal); M81.0 Age-related osteoporosis without current pathological fracture
CPT/HCPCS: 36415; 80053; 80061; 82306; 85025

== ENCOUNTER → 2022-03-26 | Outpatient (CLI) | payer MEDICARE ==
[2022-03-26 14:27] LABS: Basophils # (A) 0.06 X 10*3/uL (0.00-0.10); Basophils % (A) 1.3 %; Eosinophils # (A) 0.17 X 10*3/uL (0.04-0.35); Eosinophils % (A) 3.7 %; HCT 41.3 % (37.2-46.3); HGB 12.9 g/dL (12.0-15.0); Immature Grans, Automated 0.2 %; Lymphocytes # (A) 1.61 X 10*3/uL (0.90-5.00); Lymphocytes % (A) 34.6 %; MCH 28.9 pg (27.0-32.0); MCHC 31.2 g/dL (32.0-37.0); MCV 92.6 fL (80.0-97.0); Mean Platelet Volume 11.1 fL (9.5-12.2); Monocytes # (A) 0.72 X 10*3/uL (0.20-1.00); Monocytes % (A) 15.5 %; NRBC Per 100 WBC 0 /100 WBCS (0.0-0.0); Neutrophils # (A) 2.08 X 10*3/uL (1.80-7.70); Neutrophils % (A) 44.7 %; Platelet Count 249 X 10*3/uL (140-440); RBC 4.46 X 10*6/uL (4.10-5.20); RDW 14.1 % (11.5-14.5); WBC 4.65 X 10*3/uL (4.50-10.00)
[2022-03-26 15:07] LABS: ALT 25 U/L (8-44); AST 33 U/L (13-35); African American GFR (CKD) 101.7 (60.0-200.0); Albumin 4.6 g/dL (3.8-4.9); Albumin/Globulin Ratio 2.09 (1.60-3.17); Alkaline Phosphatase 54 U/L (41-126); BUN/Creat Ratio 14.57 Ratio (12.00-20.00); Blood Urea Nitrogen 10.2 mg/dL (9.0-27.0); Calcium 9.5 mg/dL (8.7-10.3); Carbon Dioxide 27.7 mmol/L (20.0-27.5); Chloride 101 mmol/L (96-109); Chol/HDL Ratio 2.55 Ratio; Creatine Kinase 209 U/L (26-186); Globulin 2.2 g/dL (1.6-3.3); Glucose 100 mg/dL (70-110); LDL Cholesterol,Calculated 99.5 mg/dL (0.0-131.0); Non-African American GFR(CKD) 87.8 (60.0-200.0); Potassium 4.2 mmol/L (3.5-5.5); Sodium 140 mmol/L (135-145); Total Protein 6.8 g/dL (6.2-8.2); Uric Acid 3.4 mg/dL (2.9-7.7)
[2022-03-26 16:41] LABS: Appearance,Urine Clear (Clear); Bilirubin,Urine Negative (Negative); Blood,Urine Trace (Negative); Color,Urine Yellow (Yellow); Ketones,Urine Negative (Negative); Nitrite,Urine Negative (Negative); Specific Gravity,Urine 1.011 (1.001-1.030)
[2022-03-26 16:52] LABS: Bacteria,Urine None Seen /HPF (None Seen)
== END | disposition home or self-care (01) ==
LOC: LABWHC1 08:44
PROVIDERS: ATTEND Family Medicine
DX: D30.00 Benign neoplasm of unspecified kidney (principal); M19.90 Unspecified osteoarthritis, unspecified site; J44.9 Chronic obstructive pulmonary disease, unspecified; J45.998 Other asthma
CPT/HCPCS: 36415; 80053; 80061; 81001; 82306; 82550; 82607; 84550; 85025

== ENCOUNTER → 2022-04-22 | Outpatient (CLI) | payer MEDICARE ==
[2022-04-22 13:10] LABS: African American GFR (CKD) >90 (>60 ml/min/1.73 sqM); Blood Urea Nitrogen 14 mg/dL (7-17); Non-African American GFR(CKD) >90 (>60 ml/min/1.73 sqM)
--- NOTE | 2022-04-22 18:16 | CT ---
EXAMINATION TYPE: CT urogram wo/w con DATE OF EXAM: 04/22/2022 INDICATION: Microscopic Hematuria CT DLP: 1677 mGy.cm Automated Exposure Control for Dose Reduction was Utilized. TECHNIQUE AND CONTRAST: CT scan of the abdomen and pelvis is performed without and with IV Contrast, as per CT urogram protoc ol. Patient injected with 100 mL of Isovue 300. 3-D reconstruction images were generated on an [employer] workstation and reviewed. COMPARISON: CT dated 08/04/2016 FINDINGS: The urinary bladder, inferior aspects of the uterus and other pelvic structures are obscured by artif acts from bilateral total hip arthroplasties. Exophytic enhancing solid lesion seen at the lower pole of the left kidney measuring 4 x 4.5 cm compared to 3.6 x 4.[address] scan. Unremarkable left kidney otherwise. Dilated right renal collecting system with transition seen at the right pelviureter ic junction without dilatation of the visualized portion of the ureter which may suggest pelviureteri c junction obstruction. Simple cyst is seen at the posterior aspect of the lower pole of the right kidney. Nonenhancing hyper dense cortical lesion seen at the lower pole of the right kidney measuring 8mm and most likely repres enting hemorrhagic/proteinaceous cyst. No other definite right renal lesion identified. Unremarkable liver, gallbladder, spleen, pancreas, and adrenals. Minimal arterial atherosclerotic derek cifications. Unremarkable nondistended stomach. Suboptimal assessment of the small and large bowel du e to paucity of intra-abdominal fat. No evidence of bowel obstruction. No pathologically enlarged abd ominal lymph nodes. Unremarkable lung bases. Degenerative changes of the lumbar spine. IMPRESSION: Slight interval enlargement of the known solid enhancing mass at the lower pole of the left kidney as detailed above, please correlate with previous pathology results if available. Simple cyst and proteinaceous/hemorrhagic cyst at the lower pole of the right kidney. Dilated right r enal collecting system without dilatation of the ureter suggestive of pelviureteric junction obstruct ion. No hydroureter bilaterally. It is not possible to exclude urinary bladder or distal ureteric abnormal ity by this CT scan due to artifacts from hip prosthesis. Other findings as described above.
== END | disposition home or self-care (01) ==
LOC: RADCTMAIN 12:13
PROVIDERS: ATTEND Family Medicine
DX: N28.1 Cyst of kidney, acquired (principal); N28.89 Other specified disorders of kidney and ureter
CPT/HCPCS: 82565; 84520; 74178; 36415; 74400; Q9967

== ENCOUNTER → 2022-09-14 | Outpatient (CLI) | payer MEDICARE ==
[2022-09-14 10:45] LABS: Basophils # (A) 0.05 X 10*3/uL (0.00-0.10); Basophils % (A) 1.1 %; Eosinophils # (A) 0.18 X 10*3/uL (0.04-0.35); HCT 44.1 % (37.2-46.3); HGB 14.1 g/dL (12.0-15.0); Immature Grans, Automated 0.2 %; Lymphocytes # (A) 1.76 X 10*3/uL (0.90-5.00); MCH 29.2 pg (27.0-32.0); MCV 91.3 fL (80.0-97.0); Mean Platelet Volume 11.4 fL (9.5-12.2); Monocytes % (A) 8.9 %; NRBC Per 100 WBC 0 /100 WBCS (0.0-0.0); Neutrophils # (A) 2.11 X 10*3/uL (1.80-7.70); Neutrophils % (A) 46.8 %; Platelet Count 174 X 10*3/uL (140-440); RBC 4.83 X 10*6/uL (4.10-5.20); RDW 13.6 % (11.5-14.5); WBC 4.51 X 10*3/uL (4.50-10.00)
[2022-09-14 11:16] LABS: ALT 21 U/L (8-44); AST 30 U/L (13-35); African American GFR (CKD) 101.7 (60.0-200.0); Albumin 4.8 g/dL (3.8-4.9); Albumin/Globulin Ratio 1.92 (1.60-3.17); Alkaline Phosphatase 58 U/L (41-126); BUN/Creat Ratio 13.43 Ratio (12.00-20.00); Blood Urea Nitrogen 9.4 mg/dL (9.0-27.0); Calcium 10.3 mg/dL (8.7-10.3); Carbon Dioxide 28.5 mmol/L (20.0-27.5); Chloride 97 mmol/L (96-109); Chol/HDL Ratio 2.42 Ratio; Globulin 2.5 g/dL (1.6-3.3); Glucose 85 mg/dL (70-110); LDL Cholesterol,Calculated 108.4 mg/dL (0.0-131.0); Non-African American GFR(CKD) 87.8 (60.0-200.0); Potassium 4.7 mmol/L (3.5-5.5); Sodium 141 mmol/L (135-145); Total Protein 7.3 g/dL (6.2-8.2); VLDL Calculation 16.98 mg/dL (5.00-40.00)
== END | disposition home or self-care (01) ==
LOC: LABWHC1 07:29
PROVIDERS: ATTEND Family Medicine
DX: J44.9 Chronic obstructive pulmonary disease, unspecified (principal); E78.5 Hyperlipidemia, unspecified; F41.9 Anxiety disorder, unspecified; E53.8 Deficiency of other specified B group vitamins; E55.9 Vitamin D deficiency, unspecified
CPT/HCPCS: 36415; 80053; 80061; 82306; 82607; 84439; 84443; 85025

== ENCOUNTER 2022-11-01 12:11 | Emergency (ER) | payer MEDICARE ==
[2022-11-01 12:23] VITALS: BP 155/82; PULSE 84; RESP 16; TEMP 97.4
--- NOTE | 2022-11-01 12:26 | ED ---
General Adult HPI - General Source: patient, RN notes reviewed Mode of arrival: ambulatory Limitations: no limitations <Lio Bernard - Last Filed: 11/01/22 12:24> <Greg Jones - Last Filed: 11/01/22 14:14> - General Stated complaint: numbness - head Time Seen by Provider: 11/01/22 12:25 - History of Present Illness Initial comments: 71-year-old female presents emergency department with chief complaint of headache, left sided head pain, numbness to the ear. 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 Patient states that she is concern with abdominal pain, numbness and tingling. Patient denies any extremity symptoms denies any chest pain shortness of breath. She states that she fell a some bumps on the side of her head. (Lio Bernard) I saw the patient the waiting room this is a 71-year-old female who presents complaining of a left-sided headache which she states is relatively normal. Patient also noticed a rash on the left side of the head which she says is painful even to light touch. Patient states the rash is been ongoing all week. The headache started last evening and has been much improved today. Patient denies numbness or weakness per patient denies any trauma recently she says about a month ago she hit her head. That is the main reason she came in because she was worried that this trauma she had a month ago caused her headache. Patient has no other complaints at this time patient denies fever or chills. (Greg Jones) - Related Data Home Medications Medication Instructions Recorded Confirmed ALPRAZolam [Xanax] 0.125 mg PO HS PRN 09/07/16 09/15/19 Aspirin EC [Ecotrin Low Dose] 81 mg PO DAILY 09/07/16 09/15/19 Simvastatin [Zocor] 10 mg PO HS 09/07/16 09/15/19 Albuterol Sulfate [Ventolin HFA] 2 puff INHALATION RT-QID PRN 09/15/19 09/15/19 Rizatriptan Odt [Maxalt Bar And Filler Assembler] 10 mg PO DAILY PRN 09/15/19 09/15/19 Previous Rx's Medication Instructions Recorded predniSONE [Deltasone] 40 mg PO DAILY #8 tab 11/01/22 Allergies Allergy/AdvReac Type Severity Reaction Status Date / Time diphenhydramine AdvReac NIGHTMARES Verified 06/20/21 08:33 [From Benadryl] Review of Systems ROS Other: All systems not noted in ROS Statement are negative. <Lio Bernard - Last Filed: 11/01/22 12:24> ROS Other: All systems not noted in ROS Statement are negative. <Greg Jones - Last Filed: 11/01/22 14:14> ROS Statement: Those systems with pertinent positive or pertinent negative responses have been documented in the HPI. Past Medical History Past Medical History: Cancer, GERD/Reflux, Hyperlipidemia, Neurologic Disorder, Osteoarthritis (OA) Additional Past Medical History / Comment(s): MIGRAINES. SEASONAL ALLERGIES. HX BREAST CANCER. RECENT BOUT OF FLU-PT NOTIFIED DR. LIO BLANCO. BENIGN TUMOR ON LT KIDNEY History of Any Multi-Drug Resistant Organisms: None Reported Past Surgical History: Breast Surgery, Hernia Repair, Joint Replacement, Tonsillectomy, Tubal Ligation Additional Past Surgical History / Comment(s): BILAT MASTECTOMY-02/2015. PORT A CATH INSERTION 04/2015-UPPER LT CHEST. COLONOSCOPY X 2. RT MICHAEL. LT KIDNEY BX, 09-08- total lt hip Past Anesthesia/Blood Transfusion Reactions: Previous Problems w/ Anesthesia Additional Past Anesthesia/Blood Transfusion Reaction / Comment(s): B/P GOES VERY LOW AFTER SURGERIES Past Psychological History: Anxiety Smoking Status: Never smoker Past Alcohol Use History: Daily Past Drug Use History: None Reported - Past Family History Mother Family Medical History: Cancer, Deep Vein Thrombosis (DVT) Additional Family Medical History / Comment(s): OVARIAN Sister(s) Family Medical History: Cancer, Deep Vein Thrombosis (DVT) Additional Family Medical History / Comment(s): OVARIAN. 2 SISTERS HAD DVT Father Family Medical History: Cancer Additional Family Medical History / Comment(s): PROSTATE Brother(s) Family Medical History: Cancer Additional Family Medical History / Comment(s): LEUKEMIA <Lio Bernard - Last Filed: 11/01/22 12:24> General Exam Limitations: no limitations <Lio Bernard - Last Filed: 01/08/23 12:24> <Greg Jones - Last Filed: 11/01/22 14:14> - General Exam Comments Initial Comments: GENERAL Patient is well-developed and well-nourished. Patient is in mild distress. Patient's scalp had multiple excoriated areas difficult to assess for vesicles because they were excoriated and scabbed over they were very tender to light touch. EYES Patient's pupils are equal and round. Extraocular motion is intact SKIN Patient has some excoriated lesions on the scalp that are tender to palpation NEURO The patient is alert and oriented 3. Patient has a 4 times and full range of motion. Patient cranial nerves II through XII are grossly intact PYSCH Patient has normal interpersonal interactions. MUSCULOSKELETAL All 4 times and full range of motion (Greg Jones) Course Vital Signs 11/01/22 12:18 Temperature 97.4 F L Pulse Rate 84 Respiratory 16 Rate Blood Pressure 155/82 O2 Sat by Pulse 100 Oximetry Medical Decision Making <Greg Jones - Last Filed: 11/01/22 14:14> - Medical Decision Making Was pt. sent in by a medical professional or institution (, PA, DOG FOOD DOUGH MIXER, urgent care, hospital, or group home...) When possible be specific @ -[No] Did you speak to anyone other than the patient for history (EMS, parent, family, police, friend...)? What history was obtained from this source @ -[No] Did you review nursing and triage notes (agree or disagree)? Why? @ -[I reviewed and agree with nursing and triage notes] Were old charts reviewed (outside hosp., previous admission, EMS record, old EKG, old radiological studies, urgent care reports/EKG's, group home records)? Report findings @ -[No old charts were reviewed] Differential Diagnosis (chest pain, altered mental status, abdominal pain women, abdominal pain men, vaginal bleeding, weakness, fever, dyspnea, syncope, headache, dizziness, GI bleed, back pain, seizure, CVA, palpatations, mental health)? @ -Differential Headache: Migraine, tension, cluster, carbon monoxide, central venous thrombosis, pension karma temporal arteritis, acute closure glaucoma, intercranial hemorrhage, mastoiditis, sinusitis, head injury, this is not meant to be an all-inclusive list. EKG interpreted by me (3pts min.). @ -[As above] X-rays interpreted by me (1pt min.). @ -[None done] CT interpreted by me (1pt min.). @ -CT of the brain was interpreted by myself he CT of the brain shows no acute abnormality. U/S interpreted by me (1pt. min.). @ -[None done] What testing was considered but not performed or refused? (CT, X-rays, U/S, labs)? Why? @ -[None] What meds were considered but not given or refused? Why? @ -[None] Did you discuss the management of the patient with other professionals (professionals i.e. , PA, DOG FOOD DOUGH MIXER, lab, RT, psych nurse, social media editor, senior application programmer, teacher, senior major gifts officer, geriatric case manager)? Give summary @ -[No] Was smoking cessation discussed for >3mins.? @ -[No] Was critical care preformed (if so, how long)? @ -[No] Were there social determinants of health that impacted care today? How? (Homelessness, low income, unemployed, alcoholism, drug addiction, transportation, low edu. Level, literacy, decrease access to med. care, alf, rehab)? @ -[No] Was there de-escalation of care discussed even if they declined (Discuss DNR or withdrawal of care, Hospice)? DNR status @ -[No] What co-morbidities impacted this encounter? (DM, HTN, Smoking, COPD, CAD, Cancer, CVA, ARF, Chemo, Hep., AIDS, mental health diagnosis, sleep apnea, morbid obesity)? @ -[None] Was patient admitted / discharged? Hospital course, mention meds given and route, prescriptions, significant lab abnormalities, going to OR and other pertinent info. @ -Patient was discharged from the hospital. Patient was requesting some steroids for the rash and since it wasn't definitively zoster I thought steroids might help. Undiagnosed new problem with uncertain prognosis? @ -[No] Drug Therapy requiring intensive monitoring for toxicity (Heparin, Nitro, Insulin, Cardizem)? @ -[No] Were any procedures done? @ -[No] Diagnosis/symptom? @ -Shingles Acute, or Chronic, or Acute on Chronic? @ -Acute Uncomplicated (without systemic symptoms) or Complicated (systemic symptoms)? @ -Uncomplicated Side effects of treatment? @ -[No] Exacerbation, Progression, or Severe Exacerbation? @ -[No] Poses a threat to life or bodily function? How? (Chest pain, [place], [place], pneumonia, PE, COPD, DKA, ARF, appy, cholecystitis, CVA, Diverticulitis, Homicidal, Suicidal, threat to staff... and all critical care pts) @ -[No] (Greg Jones) Disposition <Lio Bernard - Last Filed: 11/01/22 12:24> Is patient prescribed a controlled substance at d/c from ED?: No Time of Disposition: 14:14 <Greg Jones - Last Filed: 11/01/22 14:14> Clinical Impression: Shingles, Cephalgia Disposition: HOME SELF-CARE Condition: Good Instructions (If sedation given, give patient instructions): Acute Headache (ED), Shingles (ED) Prescriptions: predniSONE [Deltasone] 40 mg PO DAILY #8 tab Referrals: Ce Rey MD [Primary Care Provider] - 1-2 days
--- NOTE | 2022-11-01 13:26 | CT ---
EXAMINATION TYPE: CT brain wo con CT DLP: 1129.6 mGycm, Automated exposure control for dose reduction was used. DATE OF EXAM: 11/01/2022 12:55 PM COMPARISON: 09/15/2019 CLINICAL INDICATION:Female, 71 years old with history of head injury, pain, Headache, Left earache, L eft jaw pain TECHNIQUE: Brain: Axial CT images of the brain were obtained with coronal and sagittal reformats created and rev iewed. Contrast used: None. Oral contrast used: None. FINDINGS: Brain: Extra-axial spaces: No abnormal extra-axial fluid collections. Ventricular system: Within normal limits Cerebral parenchyma: No acute intraparenchymal hemorrhage or mass effect. The wilson-white junction is well differentiated. Cerebellum: Unremarkable. Mass effect: No evidence of midline shift. Intracranial vasculature: Atherosclerotic calcifications of the intracranial vessels. Soft tissues: Normal. Calvarium/osseous structures: No depressed skull fracture. Paranasal sinuses and mastoid air cells: Mild scattered paranasal sinus disease. Visualized orbits: Orbital contents are intact. IMPRESSION: No acute intracranial process.
== END 2022-11-01 14:31 | disposition home or self-care (01) ==
LOC: EC 12:11
DX: R51.9 Headache, unspecified (principal); B02.9 Zoster without complications; F41.9 Anxiety disorder, unspecified; K21.9 Gastro-esophageal reflux disease without esophagitis; E78.5 Hyperlipidemia, unspecified; M19.90 Unspecified osteoarthritis, unspecified site; Z79.82 Long term (current) use of aspirin; Z79.899 Other long term (current) drug therapy; Z88.8 Allergy status to other drugs, medicaments and biological substances
CPT/HCPCS: 70450; 99284

== ENCOUNTER → 2023-03-17 | Outpatient (CLI) | payer MEDICARE ==
[2023-03-17 15:24] LABS: Basophils # (A) 0.05 X 10*3/uL (0.00-0.10); Eosinophils # (A) 0.17 X 10*3/uL (0.04-0.35); Eosinophils % (A) 3.4 %; HCT 44.8 % (37.2-46.3); HGB 14.2 g/dL (12.0-15.0); Immature Grans, Automated 0.2 %; Lymphocytes # (A) 1.52 X 10*3/uL (0.90-5.00); Lymphocytes % (A) 30.5 %; MCH 29.6 pg (27.0-32.0); MCHC 31.7 g/dL (32.0-37.0); MCV 93.5 fL (80.0-97.0); NRBC Per 100 WBC 0 /100 WBCS (0.0-0.0); Neutrophils # (A) 2.74 X 10*3/uL (1.80-7.70); Neutrophils % (A) 54.9 %; Platelet Count 255 X 10*3/uL (140-440); RBC 4.79 X 10*6/uL (4.10-5.20); RDW 13.9 % (11.5-14.5); WBC 4.99 X 10*3/uL (4.50-10.00)
[2023-03-17 15:58] LABS: ALT 18 U/L (8-44); AST 28 U/L (13-35); African American GFR (CKD) 96.2 (60.0-200.0); Albumin 4.8 g/dL (3.8-4.9); Alkaline Phosphatase 58 U/L (41-126); BUN/Creat Ratio 12.78 Ratio (12.00-20.00); Blood Urea Nitrogen 9.3 mg/dL (9.0-27.0); Calcium 10.1 mg/dL (8.7-10.3); Carbon Dioxide 27.9 mmol/L (20.0-27.5); Chloride 100 mmol/L (96-109); Chol/HDL Ratio 2.39 Ratio; Globulin 2.6 g/dL (1.6-3.3); Glucose 88 mg/dL (70-110); LDL Cholesterol,Calculated 109.7 mg/dL (0.0-131.0); Potassium 4.6 mmol/L (3.5-5.5); Sodium 139 mmol/L (135-145); Total Protein 7.4 g/dL (6.2-8.2); VLDL Calculation 13.66 mg/dL (5.00-40.00)
[2023-03-17 16:14] LABS: Appearance,Urine Clear (Clear); Bilirubin,Urine Negative (Negative); Blood,Urine Trace (Negative); Color,Urine Yellow (Yellow); Ketones,Urine Negative (Negative); Nitrite,Urine Negative (Negative); PH, Urine 7.5 (5.0-8.0); Specific Gravity,Urine 1.008 (1.001-1.030)
[2023-03-17 16:20] LABS: Bacteria,Urine None Seen /HPF (None Seen)
== END | disposition home or self-care (01) ==
LOC: LABWHC1 08:43
PROVIDERS: ATTEND Family Medicine
DX: Z00.00 Encounter for general adult medical examination without abnormal findings (principal); E78.5 Hyperlipidemia, unspecified; E53.8 Deficiency of other specified B group vitamins; E55.9 Vitamin D deficiency, unspecified
CPT/HCPCS: 36415; 80053; 80061; 81001; 82306; 82607; 84443; 85025

== ENCOUNTER → 2023-03-26 | Outpatient (CLI) | payer MEDICARE ==
--- NOTE | 2023-03-26 14:57 | CT ---
EXAMINATION TYPE: CT urogram wo/w con DATE OF EXAM: 03/26/2023 COMPARISON: 04/22/22 HISTORY: microscopic gross hematuria. CONTRAST: Performed and without and with IV Contrast, patient injected with 100 mL of Isovue 300. CT Urography was performed with unenhanced followed by enhanced images of the kidneys, ureters and ur inary bladder. Delayed images were obtained. 3d reconstruction was performed at a separate work sta tion. FINDINGS: KIDNEYS/BLADDER: No hydronephrosis. No nephrolithiasis. Stable solid exophytic mass lower pole left kidney measuring 4.3 x 4.4 x 3.8 cm versus 4.3 x 4.4 x 4.0 cm previously. 1 cm simple cyst lower graham e right kidney. Urinary bladder grossly unremarkable. LUNG BASES-: No visible nodule. No infiltrate. LIVER/GB: No calcified gallstones. No space occupying hepatic lesion. Biliary tree is of normal ca liber. PANCREAS: No inflammation. No distinct mass. SPLEEN: No splenic enlargement. No lesion seen. ADRENALS: No nodule. No thickening. BOWEL: Normal appendix. Normal bowel caliber. No inflammation. GENITAL ORGANS: No gross abnormality. LYMPH NODES: No greater than 1cm abdominal or pelvic lymph nodes are appreciated. AORTA: No significant abnormality. OSSEOUS STRUCTURES: Bilateral hip prostheses noted. Degenerative changes lumbar spine. OTHER: No significant additional abnormality is seen. IMPRESSION: 1. Stable solid exophytic mass lower pole left kidney. Correlate with any prior pathology results.
== END | disposition home or self-care (01) ==
LOC: RADCTMAIN 12:33
PROVIDERS: ATTEND Family Medicine
DX: N28.89 Other specified disorders of kidney and ureter (principal); R31.29 Other microscopic hematuria
CPT/HCPCS: 74178; 74400; Q9967

== ENCOUNTER 2023-04-23 10:09 | Day surgery (SDC) | payer MEDICARE ==
[2023-04-21 11:28] VITALS: BMI 17.7
[2023-04-23] MEDS ORDERED: LACTATED RINGERS 1,000 ML IV SCH (10:39)
[2023-04-23 10:47] VITALS: TEMP 97.2
[2023-04-23] MEDS ORDERED: PROPOFOL 10 MG/ML 20 ML VIAL IV ONE (11:45)
--- NOTE | 2023-04-23 12:03 | P.PCN ---
Date of Procedure: 04/23/23 Procedure(s) Performed: BRIEF HISTORY: Patient is a 72-year-old pleasant white white female scheduled for an elective colonoscopy as a part of screening for colon cancer. PROCEDURE PERFORMED: Colonoscopy. PREOPERATIVE DIAGNOSIS: Screening for colon cancer. IV sedation per Anesthesia. PROCEDURE: After informed consent was obtained, the patient, was brought into the endoscopy unit. IV sedation was administered by Anesthesia under continuous monitoring. Digital rectal examination was normal. Initially the Olympus CF-160 flexible video colonoscope was then inserted in the rectum, gradually advanced into the cecum with moderate difficulty. Careful examination was performed as the scope was gradually being withdrawn. Ileocecal valve and the appendiceal orifice were visualized and appeared normal. Prep was excellent. Mucosa of the cecum, ascending colon, transverse colon, descending colon, sigmoid colon, and rectum appeared normal. Retroflexion was performed in the rectum and no lesions were seen. The patient tolerated the procedure well. IMPRESSION: Normal-appearing colon from rectum to cecum with no evidence of colorectal neoplasia. RECOMMENDATIONS: Findings of this examination were discussed with the patient as well as a family. She was advised to have a repeat screening colonoscopy in 10 years.
[2023-04-23 12:30] VITALS: BP 101/67; PULSE 73; RESP 18
== END 2023-04-23 12:45 | disposition home or self-care (01) ==
LOC: ORWHC2ENDO 10:09
PROVIDERS: ATTEND Internal Medicine Gastroenterology
DX: Z12.11 Encounter for screening for malignant neoplasm of colon (principal); I10 Essential (primary) hypertension; E78.5 Hyperlipidemia, unspecified; J44.9 Chronic obstructive pulmonary disease, unspecified; F41.9 Anxiety disorder, unspecified; M19.90 Unspecified osteoarthritis, unspecified site; K21.9 Gastro-esophageal reflux disease without esophagitis; Z98.890 Other specified postprocedural states; Z79.51 Long term (current) use of inhaled steroids; Z79.899 Other long term (current) drug therapy; Z88.8 Allergy status to other drugs, medicaments and biological substances
CPT/HCPCS: G0121; J2704; 45378

== ENCOUNTER → 2024-03-21 | Outpatient (CLI) | payer MEDICARE ==
[2024-03-21 10:59] LABS: African American GFR (CKD) >90 (>60 ml/min/1.73 sqM); Blood Urea Nitrogen 13 mg/dL (7-17); Non-African American GFR(CKD) >90 (>60 ml/min/1.73 sqM)
--- NOTE | 2024-03-26 13:27 | CT ---
EXAMINATION TYPE: CT soft tissue neck w con DATE OF EXAM: 03/21/2024 COMPARISON: None HISTORY: Chronic lymphadenitis, pt c/o LT side neck pain, especially after port removal. Hx of breast ca. CT DLP: 291.10 mGycm CONTRAST: Patient injected with 100 mL of Isovue 300. TECHNIQUE: Axial images at 3 mm thick sections. Reconstructed images in the coronal plane and sagitt al plane are reviewed. FINDINGS: Limited CT sections are obtained the lung apices. Posterior lung apices have diffuse incre ase lung markings. Compressive atelectasis or scarring could be considered. Findings appear to be pre sent on the prior PET/CT at 2018. CT neck: The torus tubarius and fossa of Rosenmuller are normal. Pile Driver Operator Helper spaces are normal. Para nasal sinuses and mastoid air cells are clear. Parotid glands appear normal and symmetrical. Submandibular glands, are normal. Parapharyngeal spac es are normal. No suspicious adenopathy is evident. The hypopharynx appears within normal limits. Vocal cord level appear symmetrical. Thyroid as visualized is normal. Degenerative changes are within the cervical spine. There is a kyphosis centered at C5-6. 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 There are degenerative disc changes endplate changes C6-7. IMPRESSION: 1. Stable soft tissue neck.
== END | disposition home or self-care (01) ==
LOC: RADCTMAIN 10:23
PROVIDERS: ATTEND Family Medicine
DX: I88.1 Chronic lymphadenitis, except mesenteric (principal); M54.2 Cervicalgia; Z85.3 Personal history of malignant neoplasm of breast
CPT/HCPCS: 82565; 84520; 70491; 36415; Q9967

== ENCOUNTER → 2024-04-12 | Outpatient (CLI) | payer MEDICARE ==
--- NOTE | 2024-04-12 11:27 | BD ---
EXAMINATION TYPE: Axial Bone Density DATE OF EXAM: 04/12/2024 CLINICAL HISTORY: 73 years old Female. ICD-10 CODE: Z78.0 POSTMENOPAUSAL Height: 68 Weight: 120.6 FRAX RISK QUESTIONS: Alcohol (3 or more units per day): no Family History (Parent hip fracture): no Glucocorticoids (More than 3mos): no (Ex: prednisone, prednisolone, methylprednisolone, dexamethasone, and hydrocortisone). History of Fracture in Adulthood: no Secondary Osteoporosis: 1. Type 1 Diabetes: no 2. Hyperthyroidism: no 3. Menopause before 45: no 4. Malnutrition: no 5. Chronic liver disease: no Rheumatoid Arthritis: no Current Tobacco Use: no RISK FACTORS HISTORY OF: Surgery to Spine/Hip(right/left)/Wrist (right/left): bilateral hips replacements EXAM MEASUREMENTS: Bone mineral densitometry was performed using the [employer] System. Bone mineral density as measured about the Lumbar spine is: ----- L1-L4(G/cm2): 1.065 T Score Values are as follows: ----- L1: 0.0 ----- L2: -0.8 ----- L3: -1.4 ----- L4: -1.7 ----- L1-L4: -1.0 Z Score Values are as follows: ----- L1: 2.0 ----- L2: 1.3 ----- L3: 0.6 ----- L4: 0.3 ----- L1-L4: 1.1 Bone mineral density has: % since study of: Bone mineral density about the L Wrist (g/cm2): T Score values are as follows: -----Dist. R+U: -----Prox. R+U: -----Radius total: Z Score values are as follows: -----Dist. R+U: -----Prox. R+U: -----Radius total: Bone mineral density has: -2.7 % since study of: 06.11.2020 IMPRESSION: Normal (Values between +1 and -1 indicate normal bone mass). Consider repeating this study in 5 year s or sooner if there is some new clinical indication. NOTE: T-SCORE=SD OF THE YOUNG ADULT MEAN.
== END | disposition home or self-care (01) ==
LOC: RADBDWWP 09:56
PROVIDERS: ATTEND Family Medicine
DX: M85.89 Other specified disorders of bone density and structure, multiple sites (principal); Z78.0 Asymptomatic menopausal state
CPT/HCPCS: 77080

== ENCOUNTER → 2024-09-05 | Outpatient (CLI) | payer MEDICARE ==
--- NOTE | 2024-09-05 17:57 | US ---
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 No recent vaccinations. TECHNIQUE: Grayscale and color Doppler images taken of area of concern FINDINGS: Area of concern scanned. Anterior superificial seen. Lymph node visualized with short axis measurem ent = 0.5 cm and cortex = 2.8 mm IMPRESSION: Area of concern in the superficial neck possibly representing lymph node which is within normal limit s for size. If there remains concern for lymphadenopathy consider follow-up CT for comparison with . [facility], , 09/05/2024 5:54 PM
== END | disposition home or self-care (01) ==
LOC: RADUSWWP 15:36
PROVIDERS: ATTEND Internal Medicine Geriatric Medicine
DX: I88.1 Chronic lymphadenitis, except mesenteric (principal)
CPT/HCPCS: 76536

== ENCOUNTER → 2025-01-02 | Outpatient (CLI) | payer MEDICARE ==
[2025-01-02 19:01] LABS: ALT 44 U/L (8-44); AST 52 U/L (13-35); Albumin 4.7 g/dL (3.8-4.9); Albumin/Globulin Ratio 2.14 Ratio (1.60-3.17); Alkaline Phosphatase 143 U/L (41-126); BUN/Creat Ratio 21.54 Ratio (12.00-20.00); Calcium 9.8 mg/dL (8.7-10.3); Chloride 104 mmol/L (96-109); Globulin 2.2 g/dL (1.6-3.3); Glucose 112 mg/dL (70-110); Potassium 4.7 mmol/L (3.5-5.5); Sodium 139 mmol/L (135-145); Total Bilirubin 1.1 mg/dL (0.3-1.2); Total Protein 6.9 g/dL (6.2-8.2)
== END | disposition home or self-care (01) ==
LOC: LABWHC1 14:42
PROVIDERS: ATTEND Family Medicine
DX: R94.5 Abnormal results of liver function studies (principal)
CPT/HCPCS: 36415; 80053

== ENCOUNTER → 2025-01-23 | Outpatient (CLI) | payer MEDICARE ==
--- NOTE | 2025-01-23 07:55 | US ---
EXAMINATION TYPE: US abdomen complete DATE OF EXAM: 01/23/2025 COMPARISON: CT abdomen and pelvis 2016 CLINICAL INDICATION: Female, 74 years old with history of R74.01 ELEVATED LIVER ENZYMES; abn labs onl y, no symptoms TECHNIQUE: Grayscale and color Doppler imaging of the abdomen was performed. FINDINGS: EXAM MEASUREMENTS: Liver Length: 15.9 cm Gallbladder Wall: 0.1 cm CBD: 0.3 cm, color Doppler imaging was utilized to isolate the common bile duct for measurement. Spleen: 10.1 cm Right Kidney: 10.4 x 5.9 x 4.3 cm Left Kidney: 10.3 x 4.4 x 6.0 cm Pancreas: wnl Liver: wnl, no dilated ducts, masses or cysts. Gallbladder: wnl Evidence for sonographic Gould's sign: no CBD: wnl Spleen: wnl Right Kidney: 0.8 x 1.1 x 1.1cm anechoic lesion Left Kidney: wnl, No hydronephrosis, calculi or masses seen Upper IVC: wnl Abd Aorta: wnl The liver is homogenous. The intrahepatic portion of the IVC and proximal abdominal aorta are within normal limits. There is no evidence of cholelithiasis. Common bile duct is unremarkable. The visu alized portions of the pancreas are homogenous. The spleen is unremarkable. Kidneys are symmetric a nd free of hydronephrosis. Incidental 1.1 cm simple appearing thin-walled cyst in the left kidney. Be nign lesion, no follow-up necessary. IMPRESSION: No suspicious intrahepatic mass or intrahepatic ductal dilatation. [facility], , 01/23/2025 7:53 AM
== END | disposition home or self-care (01) ==
LOC: RADUSWWP 06:53
PROVIDERS: ATTEND Family Medicine
DX: R74.01 Elevation of levels of liver transaminase levels (principal)
CPT/HCPCS: 76700

== ENCOUNTER → 2025-02-16 | Outpatient (CLI) | payer MEDICARE ==
[2025-02-16 10:58] LABS: ALT 21 U/L (8-44); AST 32 U/L (13-35); Albumin 4.3 g/dL (3.8-4.9); Albumin/Globulin Ratio 1.87 Ratio (1.60-3.17); Alkaline Phosphatase 54 U/L (41-126); Bilirubin, Conjugated <0.20 mg/dL (0.20-0.40); Bilirubin,Unconjugated >0.20 mg/dL (0.20-1.00); Globulin 2.3 g/dL (1.6-3.3); Lipase 57 U/L (14-63); Total Bilirubin 0.4 mg/dL (0.3-1.2); Total Protein 6.6 g/dL (6.2-8.2)
[2025-02-16 11:00] LABS: Basophils # (A) 0.06 X 10*3/uL (0.00-0.10); Basophils % (A) 1.3 %; Eosinophils # (A) 0.16 X 10*3/uL (0.04-0.35); Eosinophils % (A) 3.4 %; HCT 39.7 % (37.2-46.3); HGB 12.9 g/dL (12.0-15.0); Lymphocytes # (A) 1.73 X 10*3/uL (0.90-5.00); Lymphocytes % (A) 37.2 %; MCHC 32.5 g/dL (32.0-37.0); MCV 89.2 FL (80.0-97.0); Mean Platelet Volume 11.2 FL (9.5-12.2); Monocytes % (A) 10.8 %; NRBC Per 100 WBC 0 X 10*3/uL (0.00-0.01); Neutrophils # (A) 2.19 X 10*3/uL (1.80-7.70); Neutrophils % (A) 47.1 %; Platelet Count 230 X 10*3/uL (140-440); RBC 4.45 X 10*6/uL (4.10-5.20); RDW 13.7 % (11.5-14.5); WBC 4.65 X 10*3/uL (4.50-10.00)
[2025-02-16 11:18] LABS: Hepatitis A Antibody IgM Nonreactive (Nonreactive); Hepatitis B Core IgM Nonreactive (Nonreactive); Hepatitis B Surface Antigen Nonreactive (Nonreactive); Hepatitis C IgG Antibody Nonreactive (Nonreactive)
== END | disposition home or self-care (01) ==
LOC: LABWHC1 07:20
PROVIDERS: ATTEND Family Medicine
DX: R74.01 Elevation of levels of liver transaminase levels (principal)
CPT/HCPCS: 36415; 80074; 80076; 83690; 85025